=== PATIENT | male | born 1980 | race Caucasian/White ===

== ENCOUNTER 2016-09-16 12:52 | Inpatient (IN) | payer MEDICARE, MEDICAID ==
[~2016-09-16] VITALS: Ht 182.9 cm; Wt 158.8 kg
[~2016-09-16 12:52] MED LIST: BENZ1TAB10 PO; BUPR150T3 PO; CARV3 PO; FLUT1BLS PO; HALO10 PO; INSLAN SQ; LISI-661 PO; METF500T4 PO; PANT40TA25 PO; ROSU10 PO; SITA50 PO; TRAZ150 PO
[2016-09-16 13:21] LABS: GLUCOSE,POINT OF CARE 120 MG/DL (70-110)
[2016-09-16 14:19] LABS: BASOPHILS # (AUTO) 0.17 K/uL (0.00-0.20); BASOPHILS % (AUTO) 1.5 % (0.0-2.0); EOSINOPHILS # (AUTO) 0.19 K/uL (0.00-0.70); EOSINOPHILS % (AUTO) 1.67 % (1.0-6.0); HEMOGLOBIN 15.3 g/dL (13.5-17.5); LYMPHOCYTES # (AUTO) 2.5 K/uL (1.0-4.8); LYMPHOCYTES % (AUTO) 22.3 % (22.0-44.0); MEAN CORPUSCULAR HEMOGLOBIN 29.7 pg (26.0-34.0); MEAN CORPUSCULAR HGB CONC 33.9 G/dL (31.0-37.0); MEAN CORPUSCULAR VOLUME 88 fL (80-100); MONOCYTES # (AUTO) 0.7 K/uL (0.1-1.0); MONOCYTES % (AUTO) 5.7 % (2.0-9.0); NEUTROPHILS # (AUTO) 7.8 K/uL (1.8-7.7); NEUTROPHILS % (AUTO) 68.8 % (40.0-70.0); PLATELET COUNT (AUTO) 251 K/uL (150-450); RED BLOOD CELL COUNT(AUTO) 5.14 MIL/uL (4.50-5.90); RED CELL DISTRIBUTION WIDTH 14.4 % (11.5-14.5); WHITE BLOOD COUNT (AUTO) 11.3 K/uL (4.5-11.0)
[2016-09-16 14:39] LABS: ANION GAP 11 mmol/L (8-16); CARBON DIOXIDE 27 mmol/L (22-29); CHLORIDE 92 mmol/L (98-107); GLOMERULAR FILTR. RATE CALC > 60 mL/min (>60); POTASSIUM 4.1 mmol/L (3.5-5.1); SODIUM SERUM 130 mmol/L (136-145); UREA NITROGEN, BLOOD 9 mg/dL (7-18)
[2016-09-16 14:44] LABS: ALANINE AMINOTRANSFERASE 42 U/L (12-78); ALBUMIN 4.1 g/dL (3.4-5.0); ASPARTATE AMINOTRANSFERASE 22 U/L (15-37); BILIRUBIN,TOTAL 0.3 mg/dL (0.1-1.0); TOTAL PROTEIN, SERUM 7.7 g/dL (6.4-8.2)
[2016-09-16 15:30] LABS: APPEARANCE,URINE CLEAR (CLEAR); GLUCOSE, URINE (UA) NEGATIVE (NEGATIVE); KETONES,URINE NEGATIVE (NEGATIVE); LEUKOCYTE ESTERASE ,URINE NEGATIVE (NEGATIVE); OCCULT BLOOD,URINE NEGATIVE (NEGATIVE); PH,URINE 6.5 (5.0-8.0); PROTEIN,URINE NEGATIVE (NEGATIVE)
[2016-09-16 15:31] LABS: ADD UA MICROSCOPIC NO
[2016-09-16] MEDS: MetFORMIN HCL 500 MG TABLET PO SCH (17:08)
[2016-09-16 17:11] LABS: GLUCOSE COMMENT 1 Doctor Notified; GLUCOSE,POINT OF CARE 159 MG/DL (70-110)
[2016-09-16] MEDS ORDERED: DEXTROSE 50%-WATER 25 GM/50 ML SYG IVP PRN (18:15)
[2016-09-16 18:21] VITALS: BP 130/88
[2016-09-16] MEDS: ClonazePAM 0.5 MG TABLET PO SCH (18:43)
[2016-09-16] MEDS: CARVEDILOL 3.125 MG TABLET PO SCH (18:43)
[2016-09-16] MEDS: BENZTROPINE MESYLATE 1 MG TABLET PO SCH (18:43)
[2016-09-16] MEDS: INSULIN DETEMIR 100 UNITS/ML SQ SCH (21:04)
[2016-09-16] MEDS: INSULIN ASPART 100 UNITS/ML SQ PRN (21:05)
[2016-09-16] MEDS: QUEtiapine FUMARATE 200 MG TABLET PO SCH (21:09)
[2016-09-16] MEDS: TraZODone HCL 150 MG TABLET PO SCH (21:10)
[2016-09-16] MEDS: ROSUVASTATIN CALCIUM 10 MG TABLET PO SCH (21:10)
[2016-09-16] MEDS: HALOPERIDOL 10 MG TABLET PO SCH (21:10)
[2016-09-16 21:21] LABS: GLUCOSE COMMENT 1 Received Meds; GLUCOSE,POINT OF CARE 198 MG/DL (70-110)
[2016-09-17 05:31] LABS: GLUCOSE,POINT OF CARE 160 MG/DL (70-110)
[2016-09-17 06:16] VITALS: BP 132/75
[2016-09-17] MEDS: MetFORMIN HCL 500 MG TABLET PO SCH ×2 (06:30→17:58)
[2016-09-17] MEDS: INSULIN ASPART 100 UNITS/ML SQ PRN ×4 (06:40→20:19)
[2016-09-17] MEDS: BENZTROPINE MESYLATE 1 MG TABLET PO SCH ×2 (08:23→16:21)
[2016-09-17] MEDS: ClonazePAM 0.5 MG TABLET PO SCH ×2 (08:23→16:21)
[2016-09-17] MEDS: BuPROPion HCL 150 MG SR TABLET PO SCH (08:24)
[2016-09-17] MEDS: LISINOPRIL 10 MG TABLET PO SCH (08:24)
[2016-09-17] MEDS: SitaGLIPtin PHOSPHATE 50 MG TABLET PO SCH (08:24)
[2016-09-17] MEDS: NICOTINE 21 MG/24 HOUR PATCH TD SCH (08:25)
[2016-09-17] MEDS: CARVEDILOL 3.125 MG TABLET PO SCH ×2 (08:25→16:22)
[2016-09-17] MEDS: FLUTICASONE/VILANTEROL 200-25 MCG/INH INHALER [14] IH SCH (08:27)
[2016-09-17] MEDS: PANTOPRAZOLE SODIUM 40 MG DR TABLET PO SCH (08:27)
[2016-09-17 09:30] VITALS: BP 112/83
[2016-09-17] MEDS ORDERED: ACETAMINOPHEN 325 MG TABLET PO PRN (11:15)
[2016-09-17 11:26] LABS: GLUCOSE COMMENT 1 Received Meds; GLUCOSE,POINT OF CARE 147 MG/DL (70-110)
[2016-09-17] MEDS: IBUPROFEN 600 MG TABLET PO PRN ×2 (11:26→20:41)
[2016-09-17 12:32] VITALS: BP 153/81
[2016-09-17] MEDS: LORazepam 2 MG TABLET PO PRN (12:56)
[2016-09-17 16:31] LABS: GLUCOSE,POINT OF CARE 204 MG/DL (70-110)
[2016-09-17 18:07] VITALS: BP 131/90
[2016-09-17] MEDS: HALOPERIDOL 10 MG TABLET PO SCH (20:10)
[2016-09-17] MEDS: QUEtiapine FUMARATE 200 MG TABLET PO SCH (20:10)
[2016-09-17] MEDS: ROSUVASTATIN CALCIUM 10 MG TABLET PO SCH (20:10)
[2016-09-17] MEDS: TraZODone HCL 150 MG TABLET PO SCH (20:10)
[2016-09-17] MEDS: INSULIN DETEMIR 100 UNITS/ML SQ SCH (20:20)
[2016-09-17 20:21] LABS: GLUCOSE,POINT OF CARE 180 MG/DL (70-110)
[2016-09-17 20:38] VITALS: BP 146/89
[2016-09-18 05:36] LABS: GLUCOSE,POINT OF CARE 163 MG/DL (70-110)
[2016-09-18] MEDS: INSULIN ASPART 100 UNITS/ML SQ PRN ×3 (06:28→20:12)
[2016-09-18] MEDS: MetFORMIN HCL 500 MG TABLET PO SCH ×2 (06:28→16:25)
[2016-09-18] MEDS: BENZTROPINE MESYLATE 1 MG TABLET PO SCH ×2 (09:17→16:25)
[2016-09-18] MEDS: PANTOPRAZOLE SODIUM 40 MG DR TABLET PO SCH (09:17)
[2016-09-18] MEDS: FLUTICASONE/VILANTEROL 200-25 MCG/INH INHALER [14] IH SCH (09:18)
[2016-09-18] MEDS: CARVEDILOL 3.125 MG TABLET PO SCH ×2 (09:18→16:25)
[2016-09-18] MEDS: SitaGLIPtin PHOSPHATE 50 MG TABLET PO SCH (09:18)
[2016-09-18] MEDS: ClonazePAM 0.5 MG TABLET PO SCH ×2 (09:18→16:25)
[2016-09-18] MEDS: BuPROPion HCL 150 MG SR TABLET PO SCH (09:19)
[2016-09-18] MEDS: LISINOPRIL 10 MG TABLET PO SCH (09:19)
[2016-09-18] MEDS: NICOTINE 21 MG/24 HOUR PATCH TD SCH (09:19)
[2016-09-18] MEDS: IBUPROFEN 600 MG TABLET PO PRN (09:46)
[2016-09-18 09:55] VITALS: BP 174/75
[2016-09-18 11:31] LABS: GLUCOSE,POINT OF CARE 162 MG/DL (70-110)
[2016-09-18] MEDS: LORazepam 2 MG TABLET PO PRN (12:57)
[2016-09-18] MEDS: HALOPERIDOL 5 MG TABLET PO PRN (12:57)
[2016-09-18] MEDS: TraMADol HCL 50 MG TABLET PO PRN (16:26)
[2016-09-18 16:36] LABS: GLUCOSE COMMENT 1 Received Meds; GLUCOSE,POINT OF CARE 127 MG/DL (70-110)
[2016-09-18] MEDS: ROSUVASTATIN CALCIUM 10 MG TABLET PO SCH (19:57)
[2016-09-18] MEDS: HALOPERIDOL 10 MG TABLET PO SCH (19:58)
[2016-09-18] MEDS: QUEtiapine FUMARATE 200 MG TABLET PO SCH (19:58)
[2016-09-18] MEDS: TraZODone HCL 150 MG TABLET PO SCH (19:58)
[2016-09-18 20:10] LABS: GLUCOSE COMMENT 1 Received Meds; GLUCOSE,POINT OF CARE 189 MG/DL (70-110)
[2016-09-18] MEDS: INSULIN DETEMIR 100 UNITS/ML SQ SCH (20:11)
[2016-09-19 06:06] LABS: GLUCOSE,POINT OF CARE 167 MG/DL (70-110)
[2016-09-19] MEDS: MetFORMIN HCL 500 MG TABLET PO SCH ×2 (06:53→17:18)
[2016-09-19] MEDS: INSULIN ASPART 100 UNITS/ML SQ PRN ×4 (07:05→20:37)
[2016-09-19] MEDS: PANTOPRAZOLE SODIUM 40 MG DR TABLET PO SCH (08:46)
[2016-09-19] MEDS: ClonazePAM 0.5 MG TABLET PO SCH ×2 (08:46→16:20)
[2016-09-19] MEDS: BENZTROPINE MESYLATE 1 MG TABLET PO SCH ×2 (08:46→16:20)
[2016-09-19] MEDS: FLUTICASONE/VILANTEROL 200-25 MCG/INH INHALER [14] IH SCH (08:46)
[2016-09-19] MEDS: BuPROPion HCL 150 MG SR TABLET PO SCH (08:47)
[2016-09-19] MEDS: SitaGLIPtin PHOSPHATE 50 MG TABLET PO SCH (08:47)
[2016-09-19] MEDS: CARVEDILOL 3.125 MG TABLET PO SCH ×2 (08:47→16:20)
[2016-09-19] MEDS: LISINOPRIL 10 MG TABLET PO SCH (08:48)
[2016-09-19] MEDS: NICOTINE 21 MG/24 HOUR PATCH TD SCH (08:48)
[2016-09-19 09:43] VITALS: BP 142/101
[2016-09-19] MEDS: TraMADol HCL 50 MG TABLET PO PRN ×2 (09:50→21:50)
[2016-09-19 12:01] LABS: GLUCOSE COMMENT 1 Received Meds; GLUCOSE,POINT OF CARE 175 MG/DL (70-110)
[2016-09-19 12:59] VITALS: BP 139/85
[2016-09-19] MEDS: ALBUTEROL SULFATE/IPRATROPIUM 100-20 MCG/SPRAY 4 GM INHALER IH PRN (15:07)
[2016-09-19 16:26] LABS: GLUCOSE COMMENT 1 Received Meds; GLUCOSE,POINT OF CARE 148 MG/DL (70-110)
[2016-09-19] MEDS: MAGNESIUM CITRATE 300 ML ORAL SOLUTION PO PRN (18:49)
[2016-09-19] MEDS: LORazepam 2 MG TABLET PO PRN (19:05)
[2016-09-19] MEDS: HALOPERIDOL 5 MG TABLET PO PRN (19:06)
[2016-09-19 20:30] LABS: GLUCOSE COMMENT 1 Received Meds; GLUCOSE,POINT OF CARE 167 MG/DL (70-110)
[2016-09-19] MEDS: INSULIN DETEMIR 100 UNITS/ML SQ SCH (20:36)
[2016-09-19] MEDS: TraZODone HCL 150 MG TABLET PO SCH (21:47)
[2016-09-19] MEDS: ROSUVASTATIN CALCIUM 10 MG TABLET PO SCH (21:47)
[2016-09-19] MEDS: HALOPERIDOL 10 MG TABLET PO SCH (21:47)
[2016-09-19] MEDS: QUEtiapine FUMARATE 200 MG TABLET PO SCH (21:47)
[2016-09-19 21:50] VITALS: BP 125/89
[2016-09-20] MEDS: INSULIN ASPART 100 UNITS/ML SQ PRN ×6 (06:24→22:25)
[2016-09-20 06:26] LABS: GLUCOSE,POINT OF CARE 188 MG/DL (70-110)
[2016-09-20] MEDS: MetFORMIN HCL 500 MG TABLET PO SCH ×2 (06:47→17:58)
[2016-09-20 07:33] LABS: CHOL/HDL RATIO 4.3 (4.2-7.3); CREATINE KINASE MB 1.5 ng/mL (0-5); CREATINE KINASE, TOTAL 171 U/L (39-308); THYROID STIMULATING HORMONE 2.05 uIU/mL (0.36-3.74)
[2016-09-20 08:00] VITALS: BP 136/77
[2016-09-20] MEDS: FLUTICASONE/VILANTEROL 200-25 MCG/INH INHALER [14] IH SCH (08:05)
[2016-09-20] MEDS: PANTOPRAZOLE SODIUM 40 MG DR TABLET PO SCH (08:05)
[2016-09-20] MEDS: TraMADol HCL 50 MG TABLET PO PRN ×2 (08:05→18:38)
[2016-09-20] MEDS: CARVEDILOL 3.125 MG TABLET PO SCH ×2 (08:06→16:02)
[2016-09-20] MEDS: BENZTROPINE MESYLATE 1 MG TABLET PO SCH ×2 (08:06→16:02)
[2016-09-20] MEDS: LISINOPRIL 10 MG TABLET PO SCH (08:06)
[2016-09-20] MEDS: BuPROPion HCL 150 MG SR TABLET PO SCH (08:06)
[2016-09-20] MEDS: SitaGLIPtin PHOSPHATE 50 MG TABLET PO SCH (08:06)
[2016-09-20] MEDS: ClonazePAM 0.5 MG TABLET PO SCH ×2 (08:06→16:02)
[2016-09-20] MEDS: NICOTINE 21 MG/24 HOUR PATCH TD SCH (08:10)
[2016-09-20 12:01] LABS: GLUCOSE,POINT OF CARE 158 MG/DL (70-110)
[2016-09-20 16:21] LABS: GLUCOSE,POINT OF CARE 192 MG/DL (70-110)
[2016-09-20 16:44] VITALS: BP 129/93
[2016-09-20 18:39] VITALS: BP 126/88
[2016-09-20 19:30] VITALS: BP 124/85
[2016-09-20] MEDS: QUEtiapine FUMARATE 200 MG TABLET PO SCH (20:35)
[2016-09-20] MEDS: HALOPERIDOL 10 MG TABLET PO SCH (20:35)
[2016-09-20] MEDS: ROSUVASTATIN CALCIUM 10 MG TABLET PO SCH (20:35)
[2016-09-20] MEDS: TraZODone HCL 150 MG TABLET PO SCH (20:35)
[2016-09-20 20:41] LABS: GLUCOSE,POINT OF CARE 224 MG/DL (70-110)
[2016-09-20] MEDS: INSULIN DETEMIR 100 UNITS/ML SQ SCH (22:20)
[2016-09-20] MEDS: ZOLPIDEM TARTRATE 10 MG TABLET PO PRN (23:33)
[2016-09-21 06:06] LABS: GLUCOSE,POINT OF CARE 198 MG/DL (70-110)
[2016-09-21] MEDS: INSULIN ASPART 100 UNITS/ML SQ PRN ×3 (07:09→21:06)
[2016-09-21] MEDS: BuPROPion HCL 150 MG SR TABLET PO SCH (08:09)
[2016-09-21] MEDS: BENZTROPINE MESYLATE 1 MG TABLET PO SCH ×2 (08:09→16:45)
[2016-09-21] MEDS: PANTOPRAZOLE SODIUM 40 MG DR TABLET PO SCH (08:09)
[2016-09-21] MEDS: LISINOPRIL 10 MG TABLET PO SCH (08:09)
[2016-09-21] MEDS: FLUTICASONE/VILANTEROL 200-25 MCG/INH INHALER [14] IH SCH (08:09)
[2016-09-21] MEDS: CARVEDILOL 3.125 MG TABLET PO SCH ×2 (08:09→16:45)
[2016-09-21] MEDS: MetFORMIN HCL 500 MG TABLET PO SCH ×2 (08:09→17:51)
[2016-09-21] MEDS: SitaGLIPtin PHOSPHATE 50 MG TABLET PO SCH (08:10)
[2016-09-21] MEDS: ClonazePAM 0.5 MG TABLET PO SCH ×2 (08:10→16:45)
[2016-09-21] MEDS: NICOTINE 21 MG/24 HOUR PATCH TD SCH (08:14)
[2016-09-21] MEDS: TraMADol HCL 50 MG TABLET PO PRN (10:06)
[2016-09-21 10:08] VITALS: BP 141/63
[2016-09-21] MEDS: HALOPERIDOL 5 MG TABLET PO PRN (11:03)
[2016-09-21] MEDS: LORazepam 2 MG TABLET PO PRN (11:03)
[2016-09-21 11:56] LABS: GLUCOSE,POINT OF CARE 169 MG/DL (70-110)
[2016-09-21 16:59] VITALS: BP 146/94
[2016-09-21 17:11] LABS: GLUCOSE,POINT OF CARE 109 MG/DL (70-110)
[2016-09-21 20:26] LABS: GLUCOSE,POINT OF CARE 257 MG/DL (70-110)
[2016-09-21] MEDS: QUEtiapine FUMARATE 200 MG TABLET PO SCH (20:41)
[2016-09-21] MEDS: MAGNESIUM CITRATE 300 ML ORAL SOLUTION PO PRN (20:41)
[2016-09-21] MEDS: ROSUVASTATIN CALCIUM 10 MG TABLET PO SCH (20:41)
[2016-09-21] MEDS: TraZODone HCL 150 MG TABLET PO SCH (20:41)
[2016-09-21] MEDS: HALOPERIDOL 10 MG TABLET PO SCH (20:41)
[2016-09-21] MEDS: INSULIN DETEMIR 100 UNITS/ML SQ SCH (21:07)
[2016-09-21] MEDS: ZOLPIDEM TARTRATE 10 MG TABLET PO PRN (23:39)
[2016-09-22 00:05] VITALS: BP 137/80
[2016-09-22 06:06] LABS: GLUCOSE,POINT OF CARE 199 MG/DL (70-110)
[2016-09-22] MEDS: MetFORMIN HCL 500 MG TABLET PO SCH (06:59)
[2016-09-22] MEDS: INSULIN ASPART 100 UNITS/ML SQ PRN ×2 (07:09→11:31)
[2016-09-22] MEDS: BENZTROPINE MESYLATE 1 MG TABLET PO SCH (08:47)
[2016-09-22] MEDS: ClonazePAM 0.5 MG TABLET PO SCH (08:47)
[2016-09-22] MEDS: SitaGLIPtin PHOSPHATE 50 MG TABLET PO SCH (08:47)
[2016-09-22] MEDS: CARVEDILOL 3.125 MG TABLET PO SCH (08:47)
[2016-09-22] MEDS: PANTOPRAZOLE SODIUM 40 MG DR TABLET PO SCH (08:47)
[2016-09-22] MEDS: BuPROPion HCL 150 MG SR TABLET PO SCH (08:48)
[2016-09-22] MEDS: LISINOPRIL 10 MG TABLET PO SCH (08:48)
[2016-09-22 08:54] VITALS: BP 141/99
[2016-09-22] MEDS: TraMADol HCL 50 MG TABLET PO PRN (08:54)
[2016-09-22] MEDS: ALBUTEROL SULFATE/IPRATROPIUM 100-20 MCG/SPRAY 4 GM INHALER IH PRN (08:55)
[2016-09-22] MEDS: FLUTICASONE/VILANTEROL 200-25 MCG/INH INHALER [14] IH SCH (08:55)
[2016-09-22] MEDS: NICOTINE 21 MG/24 HOUR PATCH TD SCH (08:55)
[2016-09-22 11:36] LABS: GLUCOSE,POINT OF CARE 171 MG/DL (70-110)
[2016-09-22] MEDS ORDERED: CLON.5 PO (12:35)
[2016-09-22] MEDS ORDERED: QUET200T PO (12:35)
== END 2016-09-22 14:00 | disposition home or self-care (01) | DRG 885 ==
LOC: EMS 12:56 → 3EX 17:03
PROVIDERS: ADMIT Psychiatry & Neurology Psychiatry; ATTEND Psychiatry & Neurology Psychiatry
PROC: 5A09457 Assistance with Respiratory Ventilation, 24-96 Consecutive Hours, Continuous Positive Airway Pressure (ICD-10-PCS; principal; 2016-09-16)
DX: F25.9 Schizoaffective disorder, unspecified (principal); R45.851 Suicidal ideations; E87.1 Hypo-osmolality and hyponatremia; Z68.42 Body mass index [BMI] 45.0-49.9, adult; E11.9 Type 2 diabetes mellitus without complications; E66.01 Morbid (severe) obesity due to excess calories; E78.00 Pure hypercholesterolemia, unspecified; E78.5 Hyperlipidemia, unspecified; G47.33 Obstructive sleep apnea (adult) (pediatric); J44.9 Chronic obstructive pulmonary disease, unspecified; K21.9 Gastro-esophageal reflux disease without esophagitis; K59.00 Constipation, unspecified; F17.210 Nicotine dependence, cigarettes, uncomplicated; F32.9 Major depressive disorder, single episode, unspecified; I11.9 Hypertensive heart disease without heart failure; M19.011 Primary osteoarthritis, right shoulder; Z79.899 Other long term (current) drug therapy; Z83.3 Family history of diabetes mellitus; Z79.4 Long term (current) use of insulin; Z98.890 Other specified postprocedural states
CPT/HCPCS: 82306; 82607; 82746; 82962; 83036; 83735; 84439; 84443; 85379; 85651; 99285; G0480

== ENCOUNTER 2016-11-10 10:45 | Inpatient (IN) | payer MEDICARE, OTHER, MEDICAID ==
[~2016-11-10] VITALS: Ht 182.9 cm; Wt 157.0 kg
[~2016-11-10 10:45] MED LIST changes: +CLON.5 PO; +QUET200T PO
[2016-11-10] MEDS ORDERED: HALOPERIDOL 5 MG TABLET PO PRN ×2 (12:15→15:00)
[2016-11-10 12:55] VITALS: BP 142/85
[2016-11-10 14:19] VITALS: BP 142/83
[2016-11-10] MEDS ORDERED: ZOLPIDEM TARTRATE 10 MG TABLET PO PRN (15:00)
[2016-11-10] MEDS ORDERED: GLUCAGON,HUMAN RECOMBINANT 1 MG VIAL IM PRN (15:15)
[2016-11-10] MEDS: ClonazePAM 0.5 MG TABLET PO SCH (16:00)
[2016-11-10] MEDS: BENZTROPINE MESYLATE 1 MG TABLET PO SCH (16:00)
[2016-11-10] MEDS: CARVEDILOL 3.125 MG TABLET PO SCH (16:01)
[2016-11-10 16:20] VITALS: BP 123/81
[2016-11-10 16:22] LABS: APPEARANCE,URINE CLEAR (CLEAR); GLUCOSE, URINE (UA) NEGATIVE (NEGATIVE); KETONES,URINE NEGATIVE (NEGATIVE); LEUKOCYTE ESTERASE ,URINE NEGATIVE (NEGATIVE); OCCULT BLOOD,URINE NEGATIVE (NEGATIVE); PH,URINE 6.5 (5.0-8.0); PROTEIN,URINE NEGATIVE (NEGATIVE)
[2016-11-10 16:39] LABS: ADD UA MICROSCOPIC NO
[2016-11-10] MEDS: MetFORMIN HCL 500 MG TABLET PO SCH (16:52)
[2016-11-10] MEDS: INSULIN ASPART 100 UNITS/ML SQ PRN ×2 (17:22→20:18)
[2016-11-10] MEDS: QUEtiapine FUMARATE 200 MG TABLET PO SCH (20:12)
[2016-11-10] MEDS: ROSUVASTATIN CALCIUM 10 MG TABLET PO SCH (20:13)
[2016-11-10] MEDS: TraZODone HCL 150 MG TABLET PO SCH (20:13)
[2016-11-10] MEDS: HALOPERIDOL 10 MG TABLET PO SCH (20:13)
[2016-11-10] MEDS: INSULIN DETEMIR 100 UNITS/ML SQ SCH (20:17)
[2016-11-11 05:38] LABS: GLUCOSE,POINT OF CARE 180 MG/DL (70-110)
[2016-11-11] MEDS: MetFORMIN HCL 500 MG TABLET PO SCH ×2 (06:30→17:45)
[2016-11-11 06:41] LABS: BASOPHILS # (AUTO) 0.04 K/uL (0.00-0.20); BASOPHILS % (AUTO) 0.5 % (0.0-2.0); EOSINOPHILS # (AUTO) 0.23 K/uL (0.00-0.70); EOSINOPHILS % (AUTO) 2.64 % (1.0-6.0); HEMOGLOBIN 15.1 g/dL (13.5-17.5); LYMPHOCYTES # (AUTO) 2.4 K/uL (1.0-4.8); LYMPHOCYTES % (AUTO) 27.6 % (22.0-44.0); MEAN CORPUSCULAR HEMOGLOBIN 29.6 pg (26.0-34.0); MEAN CORPUSCULAR HGB CONC 33.7 G/dL (31.0-37.0); MEAN CORPUSCULAR VOLUME 88 fL (80-100); MONOCYTES # (AUTO) 0.6 K/uL (0.1-1.0); MONOCYTES % (AUTO) 7.4 % (2.0-9.0); NEUTROPHILS # (AUTO) 5.4 K/uL (1.8-7.7); NEUTROPHILS % (AUTO) 61.9 % (40.0-70.0); PLATELET COUNT (AUTO) 225 K/uL (150-450); RED BLOOD CELL COUNT(AUTO) 5.11 MIL/uL (4.50-5.90); RED CELL DISTRIBUTION WIDTH 14.1 % (11.5-14.5); WHITE BLOOD COUNT (AUTO) 8.7 K/uL (4.5-11.0)
[2016-11-11 06:57] LABS: ALANINE AMINOTRANSFERASE 38 U/L (12-78); ALBUMIN 3.6 g/dL (3.4-5.0); ANION GAP 8 mmol/L (8-16); ASPARTATE AMINOTRANSFERASE 19 U/L (15-37); BILIRUBIN,TOTAL 0.3 mg/dL (0.1-1.0); CALCIUM, TOTAL 8.9 mg/dL (8.8-10.5); CARBON DIOXIDE 30 mmol/L (22-29); CHLORIDE 98 mmol/L (98-107); CREATININE 0.79 mg/dL (0.60-1.30); GLOMERULAR FILTR. RATE CALC > 60 mL/min (>60); POTASSIUM 4.1 mmol/L (3.5-5.1); SODIUM SERUM 136 mmol/L (136-145); TOTAL PROTEIN, SERUM 7.2 g/dL (6.4-8.2); UREA NITROGEN, BLOOD 7 mg/dL (7-18)
[2016-11-11] MEDS: INSULIN ASPART 100 UNITS/ML SQ PRN ×4 (07:13→21:06)
[2016-11-11] MEDS: FLUTICASONE/VILANTEROL 200-25 MCG/INH INHALER [14] IH SCH (08:20)
[2016-11-11] MEDS: ClonazePAM 0.5 MG TABLET PO SCH ×2 (08:21→16:46)
[2016-11-11] MEDS: SitaGLIPtin PHOSPHATE 50 MG TABLET PO SCH (08:21)
[2016-11-11] MEDS: BuPROPion HCL 150 MG SR TABLET PO SCH (08:21)
[2016-11-11] MEDS: BENZTROPINE MESYLATE 1 MG TABLET PO SCH ×2 (08:21→16:47)
[2016-11-11] MEDS: PANTOPRAZOLE SODIUM 40 MG DR TABLET PO SCH (08:21)
[2016-11-11] MEDS: CARVEDILOL 3.125 MG TABLET PO SCH ×2 (08:22→16:46)
[2016-11-11] MEDS: LISINOPRIL 10 MG TABLET PO SCH (08:22)
[2016-11-11] MEDS: NICOTINE 21 MG/24 HOUR PATCH TD SCH (08:26)
[2016-11-11 08:30] VITALS: BP 132/64
[2016-11-11 11:36] LABS: GLUCOSE,POINT OF CARE 189 MG/DL (70-110)
[2016-11-11] MEDS ORDERED: LORazepam 2 MG/ML VIAL IM ONE (15:30)
[2016-11-11 16:00] VITALS: BP 154/101
[2016-11-11 16:47] LABS: GLUCOSE,POINT OF CARE 209 MG/DL (70-110)
[2016-11-11] MEDS: HALOPERIDOL 10 MG TABLET PO SCH (21:04)
[2016-11-11] MEDS: TraZODone HCL 150 MG TABLET PO SCH (21:04)
[2016-11-11] MEDS: ROSUVASTATIN CALCIUM 10 MG TABLET PO SCH (21:04)
[2016-11-11] MEDS: QUEtiapine FUMARATE 200 MG TABLET PO SCH (21:05)
[2016-11-11] MEDS: INSULIN DETEMIR 100 UNITS/ML SQ SCH (21:06)
[2016-11-12 05:42] LABS: GLUCOSE,POINT OF CARE 209 MG/DL (70-110)
[2016-11-12] MEDS: MetFORMIN HCL 500 MG TABLET PO SCH ×2 (06:50→16:30)
[2016-11-12] MEDS: INSULIN ASPART 100 UNITS/ML SQ PRN ×3 (07:06→23:02)
[2016-11-12] MEDS ORDERED: MAGNESIUM CITRATE 300 ML ORAL SOLUTION PO PRN (07:45)
[2016-11-12 08:00] VITALS: BP 106/84
[2016-11-12] MEDS: FLUTICASONE/VILANTEROL 200-25 MCG/INH INHALER [14] IH SCH (08:57)
[2016-11-12] MEDS: BENZTROPINE MESYLATE 1 MG TABLET PO SCH ×2 (08:58→16:30)
[2016-11-12] MEDS: CARVEDILOL 3.125 MG TABLET PO SCH ×2 (08:58→16:30)
[2016-11-12] MEDS: BuPROPion HCL 150 MG SR TABLET PO SCH (08:58)
[2016-11-12] MEDS: SitaGLIPtin PHOSPHATE 50 MG TABLET PO SCH (08:58)
[2016-11-12] MEDS: ClonazePAM 0.5 MG TABLET PO SCH ×2 (08:58→16:30)
[2016-11-12] MEDS: PANTOPRAZOLE SODIUM 40 MG DR TABLET PO SCH (08:58)
[2016-11-12] MEDS: LISINOPRIL 10 MG TABLET PO SCH (08:59)
[2016-11-12] MEDS: NICOTINE 21 MG/24 HOUR PATCH TD SCH (08:59)
[2016-11-12] MEDS ORDERED: LORazepam 2 MG/ML VIAL IM ONE (14:30)
[2016-11-12] MEDS ORDERED: DiphenhydrAMINE HCL 50 MG/ML VIAL IM ONE (14:30)
[2016-11-12] MEDS ORDERED: HALOPERIDOL LACTATE 5 MG/ML VIAL IM ONE (14:30)
[2016-11-12 16:40] VITALS: BP 145/100
[2016-11-12] MEDS: TraZODone HCL 150 MG TABLET PO SCH (20:10)
[2016-11-12] MEDS: QUEtiapine FUMARATE 200 MG TABLET PO SCH (20:10)
[2016-11-12] MEDS: ROSUVASTATIN CALCIUM 10 MG TABLET PO SCH (20:10)
[2016-11-12] MEDS: HALOPERIDOL 10 MG TABLET PO SCH (20:10)
[2016-11-12] MEDS ORDERED: ALBUTEROL SULFATE/IPRATROPIUM 100-20 MCG/SPRAY 4 GM INHALER IH PRN (20:15)
[2016-11-12] MEDS: INSULIN DETEMIR 100 UNITS/ML SQ SCH (23:03)
[2016-11-13 05:12] LABS: GLUCOSE,POINT OF CARE 190 MG/DL (70-110)
[2016-11-13] MEDS: INSULIN ASPART 100 UNITS/ML SQ PRN ×4 (06:44→20:52)
[2016-11-13] MEDS: MetFORMIN HCL 500 MG TABLET PO SCH ×2 (07:09→16:30)
[2016-11-13 08:00] VITALS: BP 151/95
[2016-11-13] MEDS: FLUTICASONE/VILANTEROL 200-25 MCG/INH INHALER [14] IH SCH (08:31)
[2016-11-13] MEDS: CARVEDILOL 3.125 MG TABLET PO SCH ×2 (08:32→16:30)
[2016-11-13] MEDS: ClonazePAM 0.5 MG TABLET PO SCH ×2 (08:32→16:30)
[2016-11-13] MEDS: PANTOPRAZOLE SODIUM 40 MG DR TABLET PO SCH (08:32)
[2016-11-13] MEDS: BENZTROPINE MESYLATE 1 MG TABLET PO SCH ×2 (08:32→16:30)
[2016-11-13] MEDS: SitaGLIPtin PHOSPHATE 50 MG TABLET PO SCH (08:32)
[2016-11-13] MEDS: BuPROPion HCL 150 MG SR TABLET PO SCH (08:32)
[2016-11-13] MEDS: LISINOPRIL 10 MG TABLET PO SCH (08:33)
[2016-11-13] MEDS: NICOTINE 21 MG/24 HOUR PATCH TD SCH (08:33)
[2016-11-13] MEDS ORDERED: CloNIDine HCL 0.1 MG TABLET PO PRN (11:30)
[2016-11-13] MEDS ORDERED: FLUTICASONE/VILANTEROL 200-25 MCG/INH INHALER [14] IH SCH (11:45)
[2016-11-13] MEDS ORDERED: IPRATROPIUM BROMIDE 0.5 MG/2.5 ML NEB SOLUTION NEB PRN (11:45)
[2016-11-13] MEDS ORDERED: ALBUTEROL SULFATE 2.5 MG/0.5 ML NEB SOLUTION NEB PRN (11:45)
[2016-11-13] MEDS: PredniSONE 20 MG TABLET PO SCH (12:22)
[2016-11-13 17:00] VITALS: BP 146/90
[2016-11-13] MEDS: HALOPERIDOL 10 MG TABLET PO SCH (20:38)
[2016-11-13] MEDS: QUEtiapine FUMARATE 200 MG TABLET PO SCH (20:38)
[2016-11-13] MEDS: TraZODone HCL 150 MG TABLET PO SCH (20:38)
[2016-11-13] MEDS: ROSUVASTATIN CALCIUM 10 MG TABLET PO SCH (20:38)
[2016-11-13] MEDS: INSULIN DETEMIR 100 UNITS/ML SQ SCH (20:52)
[2016-11-14 05:22] LABS: GLUCOSE,POINT OF CARE 217 MG/DL (70-110)
[2016-11-14] MEDS: INSULIN ASPART 100 UNITS/ML SQ PRN ×2 (06:59→11:44)
[2016-11-14] MEDS: MetFORMIN HCL 500 MG TABLET PO SCH (07:05)
[2016-11-14 08:01] VITALS: BP 152/88
[2016-11-14] MEDS: BENZTROPINE MESYLATE 1 MG TABLET PO SCH (08:47)
[2016-11-14] MEDS: ClonazePAM 0.5 MG TABLET PO SCH (08:47)
[2016-11-14] MEDS: CARVEDILOL 3.125 MG TABLET PO SCH (08:48)
[2016-11-14] MEDS: LISINOPRIL 10 MG TABLET PO SCH (08:48)
[2016-11-14] MEDS: FLUTICASONE/VILANTEROL 200-25 MCG/INH INHALER [14] IH SCH (08:48)
[2016-11-14] MEDS: PANTOPRAZOLE SODIUM 40 MG DR TABLET PO SCH (08:49)
[2016-11-14] MEDS: BuPROPion HCL 150 MG SR TABLET PO SCH (08:49)
[2016-11-14] MEDS: SitaGLIPtin PHOSPHATE 50 MG TABLET PO SCH (08:49)
[2016-11-14] MEDS: NICOTINE 21 MG/24 HOUR PATCH TD SCH (08:50)
[2016-11-14] MEDS: PredniSONE 20 MG TABLET PO SCH (08:51)
[2016-11-14] MEDS ORDERED: PRED20 PO ×2 (13:09→13:10)
[2016-11-16] MEDS ORDERED: PredniSONE 20 MG TABLET PO SCH (09:00)
[2016-11-19] MEDS ORDERED: PredniSONE 20 MG TABLET PO SCH (09:00)
== END 2016-11-14 14:45 | disposition home or self-care (01) | DRG 885 ==
LOC: 3EX 12:01 → EDSTATUS 12:41
PROVIDERS: ADMIT Psychiatry & Neurology Psychiatry; ATTEND Psychiatry & Neurology Psychiatry
PROC: 5A09457 Assistance with Respiratory Ventilation, 24-96 Consecutive Hours, Continuous Positive Airway Pressure (ICD-10-PCS; principal; 2016-11-10)
DX: F25.9 Schizoaffective disorder, unspecified (principal); J44.1 Chronic obstructive pulmonary disease with (acute) exacerbation; Z68.42 Body mass index [BMI] 45.0-49.9, adult; G47.33 Obstructive sleep apnea (adult) (pediatric); E66.01 Morbid (severe) obesity due to excess calories; I10 Essential (primary) hypertension; F17.210 Nicotine dependence, cigarettes, uncomplicated; E78.5 Hyperlipidemia, unspecified; F32.9 Major depressive disorder, single episode, unspecified; K59.00 Constipation, unspecified; F22 Delusional disorders; E11.9 Type 2 diabetes mellitus without complications; Z79.4 Long term (current) use of insulin; Z83.3 Family history of diabetes mellitus
CPT/HCPCS: 80307; 82962; 94060; 94640; 94660; J1200; J1630; J2060

== ENCOUNTER 2016-12-08 16:14 | Emergency (ER) | payer MEDICARE, OTHER ==
[~2016-12-08] VITALS: Ht 182.9 cm; Wt 159.1 kg
[~2016-12-08 16:14] MED LIST changes: +PRED20 PO
[2016-12-08 16:32] LABS: GLUCOSE,POINT OF CARE 132 MG/DL (70-110)
[2016-12-08 17:25] LABS: BASOPHILS % (AUTO) 0.4 % (0.0-2.0); EOSINOPHILS % (AUTO) 1.8 % (1.0-6.0); HEMATOCRIT 46.3 % (41-53); HEMOGLOBIN 15.2 g/dL (13.5-17.5); LYMPHOCYTES # (AUTO) 2.4 K/uL (1.0-4.8); LYMPHOCYTES % (AUTO) 23.3 % (22.0-44.0); MEAN CORPUSCULAR HEMOGLOBIN 29.2 pg (26.0-34.0); MEAN CORPUSCULAR HGB CONC 32.8 G/dL (31.0-37.0); MEAN CORPUSCULAR VOLUME 89 fL (80-100); MONOCYTES # (AUTO) 0.6 K/uL (0.1-1.0); MONOCYTES % (AUTO) 6.3 % (2.0-9.0); NEUTROPHILS % (AUTO) 68.2 % (40.0-70.0); PLATELET COUNT (AUTO) 246 K/uL (150-450); RED CELL DISTRIBUTION WIDTH 13.4 % (11.5-14.5); WHITE BLOOD COUNT (AUTO) 10.2 K/uL (4.5-11.0)
[2016-12-08 17:29] LABS: ANION GAP 11 mmol/L (8-16); CALCIUM, TOTAL 8.6 mg/dL (8.8-10.5); CARBON DIOXIDE 26 mmol/L (22-29); CHLORIDE 89 mmol/L (98-107); CREATININE 0.75 mg/dL (0.60-1.30); GLOMERULAR FILTR. RATE CALC > 60 mL/min (>60); POTASSIUM 3.7 mmol/L (3.5-5.1); SODIUM SERUM 126 mmol/L (136-145); UREA NITROGEN, BLOOD 6 mg/dL (7-18)
[2016-12-08 17:36] LABS: ALANINE AMINOTRANSFERASE 48 U/L (12-78); ASPARTATE AMINOTRANSFERASE 36 U/L (15-37); BILIRUBIN,TOTAL 0.4 mg/dL (0.1-1.0); TOTAL PROTEIN, SERUM 7.5 g/dL (6.4-8.2)
[2016-12-08] MEDS ORDERED: SODIUM CHLORIDE 0.9% 1,000 ML IV ONE ×2 (19:25→19:30)
[2016-12-08 20:20] VITALS: BP 128/80
== END 2016-12-08 20:31 | disposition home or self-care (01) ==
LOC: EMS 16:16
DX: F41.9 Anxiety disorder, unspecified (principal); E87.1 Hypo-osmolality and hyponatremia; J44.9 Chronic obstructive pulmonary disease, unspecified; F32.9 Major depressive disorder, single episode, unspecified; K21.9 Gastro-esophageal reflux disease without esophagitis; E78.00 Pure hypercholesterolemia, unspecified; F20.9 Schizophrenia, unspecified; F17.210 Nicotine dependence, cigarettes, uncomplicated; E66.01 Morbid (severe) obesity due to excess calories; Z68.42 Body mass index [BMI] 45.0-49.9, adult
CPT/HCPCS: 36415; 80053; 80307; 82962; 85025; 96360; 99284; G0480; J7030

== ENCOUNTER 2017-09-11 19:48 | Inpatient (IN) | payer MEDICARE, MEDICAID ==
[~2017-09-11] VITALS: Ht 182.9 cm; Wt 140.2 kg
[~2017-09-11 19:48] MED LIST changes: +CIPR-245 PO; +HYDR-4061 PO; -PRED20 PO
[2017-09-11] MEDS ORDERED: ZOLPIDEM TARTRATE 10 MG TABLET PO PRN (20:15)
[2017-09-12] MEDS ORDERED: PANTOPRAZOLE SODIUM 40 MG DR TABLET PO ONE (00:45)
[2017-09-12] MEDS ORDERED: DEXTROSE 50%-WATER 25 GM/50 ML SYRINGE IVP PRN (00:45)
[2017-09-12 01:27] VITALS: BP 139/86
[2017-09-12] MEDS ORDERED: -PHARMACY VACCINE NOTE- MISC ONE (02:15)
[2017-09-12] MEDS ORDERED: INFLUENZA VIRUS VACCINE QVS 2017-18 (3YR+)/PF 60 MCG/0.5 ML SYRINGE IM ONE (02:15)
[2017-09-12] MEDS: SODIUM CHLORIDE 1 GM TABLET PO SCH ×3 (05:51→17:24)
[2017-09-12] MEDS: NITROFURANTOIN MACROCRYSTAL 100 MG CAPSULE PO SCH ×3 (05:51→17:24)
[2017-09-12 06:03] LABS: GLUCOMETER DEV NAME(LOC) 3EX 1; GLUCOSE,POINT OF CARE 240 MG/DL (70-110)
[2017-09-12] MEDS: MetFORMIN HCL 500 MG TABLET PO SCH ×2 (06:44→17:24)
[2017-09-12] MEDS: INSULIN ASPART 100 UNITS/ML SQ PRN ×4 (06:47→21:06)
[2017-09-12] MEDS: CARVEDILOL 3.125 MG TABLET PO SCH ×2 (08:34→16:31)
[2017-09-12] MEDS: FLUTICASONE/VILANTEROL 200-25 MCG/INH INHALER [14] IH SCH (08:34)
[2017-09-12] MEDS: SitaGLIPtin PHOSPHATE 50 MG TABLET PO SCH (08:35)
[2017-09-12] MEDS: PANTOPRAZOLE SODIUM 40 MG DR TABLET PO SCH (08:37)
[2017-09-12 09:55] VITALS: BP 122/92
[2017-09-12 11:38] LABS: GLUCOMETER DEV NAME(LOC) 3EX 1; GLUCOSE,POINT OF CARE 276 MG/DL (70-110)
[2017-09-12] MEDS: LORazepam 2 MG TABLET PO PRN (13:36)
[2017-09-12 14:50] LABS: ANION GAP 5 mmol/L (8-16); CALCIUM, TOTAL 8.9 mg/dL (8.8-10.5); CARBON DIOXIDE 32 mmol/L (22-29); CHLORIDE 95 mmol/L (98-107); CREATININE 0.92 mg/dL (0.60-1.30); GLOMERULAR FILTR. RATE CALC > 60 mL/min (>60); GLUCOSE,RANDOM 270 mg/dL (70-110); POTASSIUM 4.4 mmol/L (3.5-5.1); SODIUM SERUM 132 mmol/L (136-145); UREA NITROGEN, BLOOD 21 mg/dL (7-18)
[2017-09-12 19:14] VITALS: BP 116/80
[2017-09-12] MEDS: ROSUVASTATIN CALCIUM 10 MG TABLET PO SCH (21:01)
[2017-09-12] MEDS: INSULIN GLARGINE,HUM.REC.ANLOG 100 UNITS/ML SQ SCH (21:05)
[2017-09-12 21:23] LABS: GLUCOMETER DEV NAME(LOC) 3EX 1; GLUCOSE,POINT OF CARE 281 MG/DL (70-110)
[2017-09-13] MEDS: NITROFURANTOIN MACROCRYSTAL 100 MG CAPSULE PO SCH ×4 (00:47→18:06)
[2017-09-13] MEDS: SODIUM CHLORIDE 1 GM TABLET PO SCH ×4 (00:47→18:06)
[2017-09-13] MEDS: LORazepam 2 MG TABLET PO PRN ×2 (02:48→09:43)
[2017-09-13 03:42] VITALS: BP 110/79
[2017-09-13 05:33] LABS: GLUCOMETER DEV NAME(LOC) 3EI B; GLUCOSE,POINT OF CARE 244 MG/DL (70-110)
[2017-09-13] MEDS: MetFORMIN HCL 500 MG TABLET PO SCH ×2 (06:46→16:24)
[2017-09-13] MEDS: INSULIN ASPART 100 UNITS/ML SQ PRN ×4 (06:59→20:41)
[2017-09-13 07:28] LABS: ANION GAP 5 mmol/L (8-16); CALCIUM, TOTAL 8.8 mg/dL (8.8-10.5); CARBON DIOXIDE 30 mmol/L (22-29); CHLORIDE 98 mmol/L (98-107); GLOMERULAR FILTR. RATE CALC > 60 mL/min (>60); GLUCOSE,RANDOM 234 mg/dL (70-110); POTASSIUM 4.7 mmol/L (3.5-5.1); SODIUM SERUM 133 mmol/L (136-145); UREA NITROGEN, BLOOD 15 mg/dL (7-18)
[2017-09-13] MEDS: FLUTICASONE/VILANTEROL 200-25 MCG/INH INHALER [14] IH SCH (08:37)
[2017-09-13] MEDS: SitaGLIPtin PHOSPHATE 50 MG TABLET PO SCH (08:38)
[2017-09-13] MEDS: CARVEDILOL 3.125 MG TABLET PO SCH ×2 (08:38→16:24)
[2017-09-13] MEDS: PANTOPRAZOLE SODIUM 40 MG DR TABLET PO SCH (08:38)
[2017-09-13 09:15] VITALS: BP 132/89
[2017-09-13 09:22] LABS: GLUCOMETER DEV NAME(LOC) 3EX 1; GLUCOSE,POINT OF CARE 235 MG/DL (70-110)
[2017-09-13] MEDS: HALOPERIDOL 5 MG TABLET PO PRN (09:43)
[2017-09-13] MEDS ORDERED: HALOPERIDOL LACTATE 5 MG/ML VIAL ONE (10:58)
[2017-09-13] MEDS ORDERED: DiphenhydrAMINE HCL 50 MG/ML VIAL ONE (10:58)
[2017-09-13] MEDS ORDERED: DiphenhydrAMINE HCL 50 MG/ML VIAL IM ONE (11:00)
[2017-09-13] MEDS ORDERED: LORazepam 2 MG/ML VIAL IM ONE (11:00)
[2017-09-13] MEDS ORDERED: HALOPERIDOL LACTATE 5 MG/ML VIAL IM ONE (11:00)
[2017-09-13 11:28] LABS: GLUCOMETER DEV NAME(LOC) 3EX 1; GLUCOSE,POINT OF CARE 188 MG/DL (70-110)
[2017-09-13] MEDS: NICOTINE 14 MG/24 HOUR PATCH TD SCH (12:40)
[2017-09-13] MEDS: BuPROPion HCL 150 MG SR TABLET PO SCH (13:37)
[2017-09-13] MEDS: BENZTROPINE MESYLATE 1 MG TABLET PO SCH (16:24)
[2017-09-13] MEDS: ClonazePAM 0.5 MG TABLET PO SCH (16:24)
[2017-09-13 16:53] LABS: GLUCOMETER DEV NAME(LOC) 3EX 1; GLUCOSE,POINT OF CARE 164 MG/DL (70-110)
[2017-09-13 16:56] VITALS: BP 132/88
[2017-09-13] MEDS: QUEtiapine FUMARATE 200 MG TABLET PO SCH (20:15)
[2017-09-13] MEDS: HALOPERIDOL 10 MG TABLET PO SCH (20:15)
[2017-09-13] MEDS: TraZODone HCL 150 MG TABLET PO SCH (20:15)
[2017-09-13] MEDS: ROSUVASTATIN CALCIUM 10 MG TABLET PO SCH (20:15)
[2017-09-13] MEDS: INSULIN GLARGINE,HUM.REC.ANLOG 100 UNITS/ML SQ SCH (20:40)
[2017-09-13 20:57] LABS: GLUCOMETER DEV NAME(LOC) 3EX 1; GLUCOSE,POINT OF CARE 201 MG/DL (70-110)
[2017-09-14] MEDS: NITROFURANTOIN MACROCRYSTAL 100 MG CAPSULE PO SCH ×4 (00:49→17:28)
[2017-09-14] MEDS: SODIUM CHLORIDE 1 GM TABLET PO SCH ×3 (00:49→16:22)
[2017-09-14 05:28] LABS: GLUCOMETER DEV NAME(LOC) 3EI B; GLUCOSE,POINT OF CARE 175 MG/DL (70-110)
[2017-09-14 06:18] LABS: BASOPHILS % (AUTO) 0.3 % (0.0-2.0); EOSINOPHILS % (AUTO) 0.8 % (1.0-6.0); HEMATOCRIT 35.7 % (41-53); HEMOGLOBIN 12.2 g/dL (13.5-17.5); LYMPHOCYTES # (AUTO) 2.1 K/uL (1.0-4.8); LYMPHOCYTES % (AUTO) 23.2 % (22.0-44.0); MEAN CORPUSCULAR HEMOGLOBIN 29.4 pg (26.0-34.0); MEAN CORPUSCULAR HGB CONC 34.3 G/dL (31.0-37.0); MEAN CORPUSCULAR VOLUME 86 fL (80-100); MONOCYTES # (AUTO) 0.6 K/uL (0.1-1.0); MONOCYTES % (AUTO) 6.3 % (2.0-9.0); NEUTROPHILS # (AUTO) 6.2 K/uL (1.8-7.7); NEUTROPHILS % (AUTO) 69.4 % (40.0-70.0); PLATELET COUNT (AUTO) 352 K/uL (150-450); RED BLOOD CELL COUNT(AUTO) 4.15 MIL/uL (4.50-5.90); RED CELL DISTRIBUTION WIDTH 14.6 % (11.5-14.5)
[2017-09-14] MEDS: INSULIN ASPART 100 UNITS/ML SQ PRN ×3 (07:06→20:44)
[2017-09-14] MEDS: MetFORMIN HCL 500 MG TABLET PO SCH ×2 (07:23→16:46)
[2017-09-14] MEDS: FLUTICASONE/VILANTEROL 200-25 MCG/INH INHALER [14] IH SCH (08:39)
[2017-09-14] MEDS: PANTOPRAZOLE SODIUM 40 MG DR TABLET PO SCH (08:40)
[2017-09-14] MEDS: BENZTROPINE MESYLATE 1 MG TABLET PO SCH ×2 (08:40→16:21)
[2017-09-14] MEDS: CARVEDILOL 3.125 MG TABLET PO SCH ×2 (08:40→16:20)
[2017-09-14] MEDS: ClonazePAM 0.5 MG TABLET PO SCH ×2 (08:40→16:21)
[2017-09-14] MEDS: SitaGLIPtin PHOSPHATE 50 MG TABLET PO SCH (08:40)
[2017-09-14] MEDS: BuPROPion HCL 150 MG SR TABLET PO SCH (08:41)
[2017-09-14] MEDS: NICOTINE 14 MG/24 HOUR PATCH TD SCH (08:41)
[2017-09-14 09:05] VITALS: BP 123/96
[2017-09-14] MEDS: HALOPERIDOL 5 MG TABLET PO PRN ×2 (11:04→12:45)
[2017-09-14 11:23] LABS: GLUCOMETER DEV NAME(LOC) 3EX 1; GLUCOSE,POINT OF CARE 166 MG/DL (70-110)
[2017-09-14] MEDS: LORazepam 2 MG TABLET PO PRN ×2 (12:45→21:28)
[2017-09-14 20:06] VITALS: BP 107/69
[2017-09-14] MEDS: ROSUVASTATIN CALCIUM 10 MG TABLET PO SCH (20:22)
[2017-09-14] MEDS: TraZODone HCL 150 MG TABLET PO SCH (20:23)
[2017-09-14] MEDS: QUEtiapine FUMARATE 200 MG TABLET PO SCH (20:23)
[2017-09-14] MEDS: HALOPERIDOL 10 MG TABLET PO SCH (20:23)
[2017-09-14] MEDS: INSULIN GLARGINE,HUM.REC.ANLOG 100 UNITS/ML SQ SCH (20:45)
[2017-09-15] MEDS: SODIUM CHLORIDE 1 GM TABLET PO SCH ×4 (01:26→23:53)
[2017-09-15] MEDS: NITROFURANTOIN MACROCRYSTAL 100 MG CAPSULE PO SCH ×5 (01:26→23:52)
[2017-09-15 06:17] LABS: GLUCOMETER DEV NAME(LOC) 3EI B; GLUCOSE,POINT OF CARE 176 MG/DL (70-110)
[2017-09-15 07:16] VITALS: BP 129/63
[2017-09-15] MEDS: MetFORMIN HCL 500 MG TABLET PO SCH ×2 (07:26→16:59)
[2017-09-15] MEDS: INSULIN ASPART 100 UNITS/ML SQ PRN ×3 (07:33→20:25)
[2017-09-15 08:00] LABS: ANION GAP 8 mmol/L (8-16); CALCIUM, TOTAL 9.1 mg/dL (8.8-10.5); CARBON DIOXIDE 28 mmol/L (22-29); CHLORIDE 101 mmol/L (98-107); CREATININE 0.73 mg/dL (0.60-1.30); GLOMERULAR FILTR. RATE CALC > 60 mL/min (>60); GLUCOSE,RANDOM 189 mg/dL (70-110); POTASSIUM 4.6 mmol/L (3.5-5.1); SODIUM SERUM 137 mmol/L (136-145); UREA NITROGEN, BLOOD 13 mg/dL (7-18)
[2017-09-15] MEDS: NICOTINE 14 MG/24 HOUR PATCH TD SCH (08:30)
[2017-09-15] MEDS: SitaGLIPtin PHOSPHATE 50 MG TABLET PO SCH (08:30)
[2017-09-15] MEDS: CARVEDILOL 3.125 MG TABLET PO SCH ×2 (08:30→16:22)
[2017-09-15] MEDS: PANTOPRAZOLE SODIUM 40 MG DR TABLET PO SCH (08:30)
[2017-09-15] MEDS: ClonazePAM 0.5 MG TABLET PO SCH ×2 (08:30→16:24)
[2017-09-15] MEDS: BuPROPion HCL 150 MG SR TABLET PO SCH (08:30)
[2017-09-15] MEDS: FLUTICASONE/VILANTEROL 200-25 MCG/INH INHALER [14] IH SCH (08:31)
[2017-09-15] MEDS: BENZTROPINE MESYLATE 1 MG TABLET PO SCH ×2 (08:32→16:23)
[2017-09-15 09:30] LABS: APPEARANCE,URINE CLEAR (CLEAR); BILIRUBIN,URINE NEGATIVE (NEGATIVE); GLUCOSE, URINE (UA) NEGATIVE (NEGATIVE); KETONES,URINE NEGATIVE (NEGATIVE); LEUKOCYTE ESTERASE ,URINE NEGATIVE (NEGATIVE); NITRATE,URINE NEGATIVE (NEGATIVE); OCCULT BLOOD,URINE NEGATIVE (NEGATIVE); PH,URINE 6.5 (5.0-8.0); PROTEIN,URINE NEGATIVE (NEGATIVE); UROBILINOGEN,URINE 0.2 mg/dL (<=1.0)
[2017-09-15 10:32] VITALS: BP 124/84
[2017-09-15 11:38] LABS: GLUCOMETER DEV NAME(LOC) 3EX 1; GLUCOSE,POINT OF CARE 176 MG/DL (70-110)
[2017-09-15 11:38] LABS: GLUCOMETER DEV NAME(LOC) 3EX 1; GLUCOSE,POINT OF CARE 107 MG/DL (70-110)
[2017-09-15] MEDS: HALOPERIDOL 5 MG TABLET PO PRN (14:50)
[2017-09-15] MEDS: LORazepam 2 MG TABLET PO PRN (16:29)
[2017-09-15 16:32] LABS: GLUCOMETER DEV NAME(LOC) 3EX 1; GLUCOSE,POINT OF CARE 111 MG/DL (70-110)
[2017-09-15 18:42] VITALS: BP 131/83
[2017-09-15] MEDS: TraZODone HCL 150 MG TABLET PO SCH (20:00)
[2017-09-15] MEDS: ROSUVASTATIN CALCIUM 10 MG TABLET PO SCH (20:00)
[2017-09-15] MEDS: HALOPERIDOL 10 MG TABLET PO SCH (20:01)
[2017-09-15] MEDS: QUEtiapine FUMARATE 200 MG TABLET PO SCH (20:01)
[2017-09-15 20:08] LABS: GLUCOMETER DEV NAME(LOC) 3EX 1; GLUCOSE,POINT OF CARE 220 MG/DL (70-110)
[2017-09-15] MEDS: INSULIN GLARGINE,HUM.REC.ANLOG 100 UNITS/ML SQ SCH (20:22)
[2017-09-16 00:30] VITALS: BP 139/65
[2017-09-16 06:03] LABS: GLUCOMETER DEV NAME(LOC) 3EI B; GLUCOSE,POINT OF CARE 155 MG/DL (70-110)
[2017-09-16] MEDS: NITROFURANTOIN MACROCRYSTAL 100 MG CAPSULE PO SCH ×3 (06:26→17:28)
[2017-09-16] MEDS: MetFORMIN HCL 500 MG TABLET PO SCH ×2 (06:28→17:01)
[2017-09-16] MEDS: INSULIN ASPART 100 UNITS/ML SQ PRN ×4 (06:28→20:14)
[2017-09-16] MEDS: BENZTROPINE MESYLATE 1 MG TABLET PO SCH ×2 (08:15→16:30)
[2017-09-16] MEDS: FLUTICASONE/VILANTEROL 200-25 MCG/INH INHALER [14] IH SCH (08:15)
[2017-09-16] MEDS: PANTOPRAZOLE SODIUM 40 MG DR TABLET PO SCH (08:15)
[2017-09-16] MEDS: CARVEDILOL 3.125 MG TABLET PO SCH ×2 (08:15→16:29)
[2017-09-16] MEDS: SODIUM CHLORIDE 1 GM TABLET PO SCH (08:15)
[2017-09-16] MEDS: SitaGLIPtin PHOSPHATE 50 MG TABLET PO SCH (08:15)
[2017-09-16] MEDS: ClonazePAM 0.5 MG TABLET PO SCH ×2 (08:15→16:30)
[2017-09-16] MEDS: BuPROPion HCL 150 MG SR TABLET PO SCH (08:16)
[2017-09-16] MEDS: NICOTINE 14 MG/24 HOUR PATCH TD SCH (08:23)
[2017-09-16 08:29] VITALS: BP 126/78
[2017-09-16 10:58] LABS: GLUCOMETER DEV NAME(LOC) 3EX 1; GLUCOSE,POINT OF CARE 179 MG/DL (70-110)
[2017-09-16] MEDS: HALOPERIDOL 5 MG TABLET PO PRN (12:25)
[2017-09-16] MEDS: LORazepam 2 MG TABLET PO PRN (12:25)
[2017-09-16 16:48] LABS: GLUCOMETER DEV NAME(LOC) 3EX 1; GLUCOSE,POINT OF CARE 191 MG/DL (70-110)
[2017-09-16 17:13] VITALS: BP 128/66
[2017-09-16] MEDS: HALOPERIDOL 10 MG TABLET PO SCH (20:03)
[2017-09-16] MEDS: TraZODone HCL 150 MG TABLET PO SCH (20:04)
[2017-09-16] MEDS: ROSUVASTATIN CALCIUM 10 MG TABLET PO SCH (20:04)
[2017-09-16] MEDS: QUEtiapine FUMARATE 200 MG TABLET PO SCH (20:04)
[2017-09-16 20:08] LABS: GLUCOMETER DEV NAME(LOC) 3EX 1; GLUCOSE,POINT OF CARE 248 MG/DL (70-110)
[2017-09-16] MEDS: INSULIN GLARGINE,HUM.REC.ANLOG 100 UNITS/ML SQ SCH (20:13)
[2017-09-17 00:20] VITALS: BP 128/76
[2017-09-17] MEDS: NITROFURANTOIN MACROCRYSTAL 100 MG CAPSULE PO SCH ×4 (00:35→17:25)
[2017-09-17 06:13] LABS: GLUCOMETER DEV NAME(LOC) 3EI B; GLUCOSE,POINT OF CARE 163 MG/DL (70-110)
[2017-09-17] MEDS: INSULIN ASPART 100 UNITS/ML SQ PRN ×3 (06:48→20:36)
[2017-09-17] MEDS: MetFORMIN HCL 500 MG TABLET PO SCH ×2 (07:06→17:25)
[2017-09-17] MEDS: BuPROPion HCL 150 MG SR TABLET PO SCH (08:08)
[2017-09-17] MEDS: PANTOPRAZOLE SODIUM 40 MG DR TABLET PO SCH (08:08)
[2017-09-17] MEDS: CARVEDILOL 3.125 MG TABLET PO SCH ×2 (08:09→16:19)
[2017-09-17] MEDS: NICOTINE 14 MG/24 HOUR PATCH TD SCH (08:09)
[2017-09-17] MEDS: SitaGLIPtin PHOSPHATE 50 MG TABLET PO SCH (08:09)
[2017-09-17] MEDS: BENZTROPINE MESYLATE 1 MG TABLET PO SCH ×2 (08:09→16:19)
[2017-09-17] MEDS: ClonazePAM 0.5 MG TABLET PO SCH ×2 (08:09→16:20)
[2017-09-17] MEDS: FLUTICASONE/VILANTEROL 200-25 MCG/INH INHALER [14] IH SCH (08:10)
[2017-09-17 08:29] VITALS: BP 131/72
[2017-09-17 11:22] LABS: GLUCOMETER DEV NAME(LOC) 3EX 1; GLUCOSE,POINT OF CARE 112 MG/DL (70-110)
[2017-09-17] MEDS: HALOPERIDOL 5 MG TABLET PO PRN (12:52)
[2017-09-17] MEDS: LORazepam 2 MG TABLET PO PRN (12:52)
[2017-09-17 16:38] LABS: GLUCOMETER DEV NAME(LOC) 3EX 1; GLUCOSE,POINT OF CARE 126 MG/DL (70-110)
[2017-09-17 17:00] VITALS: BP 126/76
[2017-09-17] MEDS: QUEtiapine FUMARATE 200 MG TABLET PO SCH (20:13)
[2017-09-17] MEDS: HALOPERIDOL 10 MG TABLET PO SCH (20:13)
[2017-09-17] MEDS: ROSUVASTATIN CALCIUM 10 MG TABLET PO SCH (20:13)
[2017-09-17] MEDS: TraZODone HCL 150 MG TABLET PO SCH (20:14)
[2017-09-17 20:28] LABS: GLUCOMETER DEV NAME(LOC) 3EX 1; GLUCOSE,POINT OF CARE 187 MG/DL (70-110)
[2017-09-17] MEDS: INSULIN GLARGINE,HUM.REC.ANLOG 100 UNITS/ML SQ SCH (20:34)
[2017-09-18] MEDS: NITROFURANTOIN MACROCRYSTAL 100 MG CAPSULE PO SCH ×3 (00:16→12:46)
[2017-09-18] MEDS: MetFORMIN HCL 500 MG TABLET PO SCH (06:40)
[2017-09-18 06:59] LABS: GLUCOMETER DEV NAME(LOC) 3EI B; GLUCOSE,POINT OF CARE 171 MG/DL (70-110)
[2017-09-18] MEDS: INSULIN ASPART 100 UNITS/ML SQ PRN (07:04)
[2017-09-18 07:25] LABS: ANION GAP 5 mmol/L (8-16); CALCIUM, TOTAL 9.6 mg/dL (8.8-10.5); CARBON DIOXIDE 34 mmol/L (22-29); CHLORIDE 101 mmol/L (98-107); CREATININE 0.75 mg/dL (0.60-1.30); GLOMERULAR FILTR. RATE CALC > 60 mL/min (>60); GLUCOSE,RANDOM 168 mg/dL (70-110); POTASSIUM 4.7 mmol/L (3.5-5.1); SODIUM SERUM 140 mmol/L (136-145); UREA NITROGEN, BLOOD 16 mg/dL (7-18)
[2017-09-18] MEDS: FLUTICASONE/VILANTEROL 200-25 MCG/INH INHALER [14] IH SCH (08:01)
[2017-09-18] MEDS: BENZTROPINE MESYLATE 1 MG TABLET PO SCH (08:02)
[2017-09-18] MEDS: CARVEDILOL 3.125 MG TABLET PO SCH (08:02)
[2017-09-18] MEDS: SitaGLIPtin PHOSPHATE 50 MG TABLET PO SCH (08:02)
[2017-09-18] MEDS: NICOTINE 14 MG/24 HOUR PATCH TD SCH (08:03)
[2017-09-18] MEDS: BuPROPion HCL 150 MG SR TABLET PO SCH (08:03)
[2017-09-18] MEDS: ClonazePAM 0.5 MG TABLET PO SCH (08:03)
[2017-09-18] MEDS: PANTOPRAZOLE SODIUM 40 MG DR TABLET PO SCH (08:03)
[2017-09-18 08:18] VITALS: BP 131/67
[2017-09-18 09:38] LABS: GLUCOMETER DEV NAME(LOC) 3EX 1; GLUCOSE,POINT OF CARE 153 MG/DL (70-110)
[2017-09-18 11:43] LABS: GLUCOMETER DEV NAME(LOC) 3EX 1; GLUCOSE,POINT OF CARE 118 MG/DL (70-110)
[2017-09-18] MEDS ORDERED: NITR100 PO (12:46)
== END 2017-09-18 13:30 | disposition home or self-care (01) | DRG 885 ==
LOC: 3EX 09-12 00:24
PROVIDERS: ADMIT Psychiatry & Neurology Psychiatry; ATTEND Psychiatry & Neurology Psychiatry
PROC: 5A09457 Assistance with Respiratory Ventilation, 24-96 Consecutive Hours, Continuous Positive Airway Pressure (ICD-10-PCS; principal; 2017-09-12)
DX: F20.0 Paranoid schizophrenia (principal); R45.851 Suicidal ideations; E87.1 Hypo-osmolality and hyponatremia; E11.9 Type 2 diabetes mellitus without complications; N13.30 Unspecified hydronephrosis; D72.829 Elevated white blood cell count, unspecified; E78.5 Hyperlipidemia, unspecified; N39.0 Urinary tract infection, site not specified; E87.6 Hypokalemia; F17.200 Nicotine dependence, unspecified, uncomplicated; G47.33 Obstructive sleep apnea (adult) (pediatric); I10 Essential (primary) hypertension; I25.10 Atherosclerotic heart disease of native coronary artery without angina pectoris; J44.9 Chronic obstructive pulmonary disease, unspecified; K21.9 Gastro-esophageal reflux disease without esophagitis; F10.20 Alcohol dependence, uncomplicated; Z91.14 Patient's other noncompliance with medication regimen
CPT/HCPCS: 82962; 87081; 94660; J1200; J1630; J1815; J2060

== ENCOUNTER 2018-01-30 19:07 | Emergency (ER) | payer MEDICARE, OTHER ==
[~2018-01-30] VITALS: Ht 182.9 cm; Wt 109.0 kg
[~2018-01-30 19:07] MED LIST changes: -CIPR-245 PO; -HYDR-4061 PO; -LISI-661 PO; -METF500T4 PO; +METF500T6 PO; +NITR100 PO
[2018-01-30 19:33] LABS: GLUCOSE,POINT OF CARE 230 MG/DL (70-110)
[2018-01-30 20:13] LABS: BASOPHILS % (AUTO) 0.8 % (0.0-2.0); EOSINOPHILS % (AUTO) 1.9 % (1.0-6.0); HEMATOCRIT 42.3 % (41-53); HEMOGLOBIN 15.3 g/dL (13.5-17.5); LYMPHOCYTES # (AUTO) 3.2 K/uL (1.0-4.8); LYMPHOCYTES % (AUTO) 27.9 % (22.0-44.0); MEAN CORPUSCULAR HEMOGLOBIN 30.7 pg (26.0-34.0); MEAN CORPUSCULAR HGB CONC 36.1 G/dL (31.0-37.0); MEAN CORPUSCULAR VOLUME 85 fL (80-100); MONOCYTES # (AUTO) 0.7 K/uL (0.1-1.0); MONOCYTES % (AUTO) 6.1 % (2.0-9.0); NEUTROPHILS # (AUTO) 7.3 K/uL (1.8-7.7); NEUTROPHILS % (AUTO) 63.3 % (40.0-70.0); PLATELET COUNT (AUTO) 215 K/uL (150-450); RED BLOOD CELL COUNT(AUTO) 4.98 MIL/uL (4.50-5.90); RED CELL DISTRIBUTION WIDTH 13.4 % (11.5-14.5)
[2018-01-30 20:22] LABS: ANION GAP 6 mmol/L (8-16); CALCIUM, TOTAL 8.4 mg/dL (8.8-10.5); CARBON DIOXIDE 31 mmol/L (22-29); CHLORIDE 96 mmol/L (98-107); CREATININE 0.91 mg/dL (0.60-1.30); GLOMERULAR FILTR. RATE CALC > 60 mL/min (>60); GLUCOSE,RANDOM 197 mg/dL (70-110); POTASSIUM 3.7 mmol/L (3.5-5.1); SODIUM SERUM 133 mmol/L (136-145); UREA NITROGEN, BLOOD 7 mg/dL (7-18)
[2018-01-30 20:24] LABS: AMPHET/METH SCREEN,URINE NEGATIVE (NEGATIVE); BARBITURATE SCREEN, URINE NEGATIVE (NEGATIVE); BENZODIAZEPINES SCREEN,URINE NEGATIVE (NEGATIVE); CANNABINOID SCREEN,URINE NEGATIVE (NEGATIVE); COCAINE SCREEN,URINE NEGATIVE (NEGATIVE); METHADONE SCREEN, URINE NEGATIVE (NEGATIVE); OPIATE SCREEN,URINE NEGATIVE (NEGATIVE)
[2018-01-30 20:29] LABS: ALANINE AMINOTRANSFERASE 35 U/L (12-78); ALBUMIN 3.9 g/dL (3.4-5.0); ALKALINE PHOSPHATASE 86 U/L (46-116); ASPARTATE AMINOTRANSFERASE 20 U/L (15-37); BILIRUBIN,TOTAL 0.3 mg/dL (0.1-1.0); TOTAL PROTEIN, SERUM 7.5 g/dL (6.4-8.2)
[2018-01-30 20:32] LABS: PHENCYCLIDINE SCREEN,URINE NEGATIVE (NEGATIVE)
[2018-01-30 20:42] LABS: SALICYLATE 4.8 mg/dL (2.8-20.0)
[2018-01-30 20:53] LABS: ACETAMINOPHEN < 2 mcg/mL (10-30)
[2018-01-30] MEDS ORDERED: ACTIVATED CHARCOAL 50 GM/240 ML SUSPENSION PO ONE (21:45)
[2018-01-31 00:29] VITALS: BP 129/78
== END 2018-01-31 00:45 | disposition home or self-care (01) ==
LOC: EMS 19:09
DX: T43.4X1A Poisoning by butyrophenone and thiothixene neuroleptics, accidental (unintentional), initial encounter (principal); F20.9 Schizophrenia, unspecified; I10 Essential (primary) hypertension; E11.9 Type 2 diabetes mellitus without complications; J44.9 Chronic obstructive pulmonary disease, unspecified; F32.9 Major depressive disorder, single episode, unspecified; K21.9 Gastro-esophageal reflux disease without esophagitis; Y92.89 Other specified places as the place of occurrence of the external cause; F17.210 Nicotine dependence, cigarettes, uncomplicated; Z79.899 Other long term (current) drug therapy
CPT/HCPCS: 36415; 80053; 80307; 82962; 85025; 93005; 99285; G0480 ×2; G0481

== ENCOUNTER 2018-08-09 09:07 | Inpatient (IN) | payer MEDICARE, OTHER, MEDICAID ==
[~2018-08-09] VITALS: Ht 185.4 cm; Wt 152.7 kg
[~2018-08-09 09:07] MED LIST changes: +METF-960 PO; -METF500T6 PO; -NITR100 PO
[2018-08-09 09:34] LABS: GLUCOSE,POINT OF CARE 243 MG/DL (70-110)
[2018-08-09 11:05] LABS: BASOPHILS % (AUTO) 0.7 % (0.0-2.0); EOSINOPHILS % (AUTO) 0.6 % (1.0-6.0); HEMATOCRIT 41.8 % (41-53); HEMOGLOBIN 15.1 g/dL (13.5-17.5); LYMPHOCYTES # (AUTO) 1.4 K/uL (1.0-4.8); LYMPHOCYTES % (AUTO) 13.2 % (22.0-44.0); MEAN CORPUSCULAR HEMOGLOBIN 30.6 pg (26.0-34.0); MEAN CORPUSCULAR HGB CONC 36.1 G/dL (31.0-37.0); MEAN CORPUSCULAR VOLUME 85 fL (80-100); MONOCYTES # (AUTO) 0.7 K/uL (0.1-1.0); MONOCYTES % (AUTO) 6.3 % (2.0-9.0); NEUTROPHILS # (AUTO) 8.5 K/uL (1.8-7.7); NEUTROPHILS % (AUTO) 79.2 % (40.0-70.0); PLATELET COUNT (AUTO) 225 K/uL (150-450); RED BLOOD CELL COUNT(AUTO) 4.94 MIL/uL (4.50-5.90); RED CELL DISTRIBUTION WIDTH 13.7 % (11.5-14.5)
[2018-08-09] MEDS ORDERED: ZOLPIDEM TARTRATE 10 MG TABLET PO PRN (11:15)
[2018-08-09 11:26] LABS: ALANINE AMINOTRANSFERASE 43 U/L (12-78); ALKALINE PHOSPHATASE 110 U/L (46-116); ANION GAP 9 mmol/L (8-16); ASPARTATE AMINOTRANSFERASE 23 U/L (15-37); BILIRUBIN,TOTAL 0.5 mg/dL (0.1-1.0); CALCIUM, TOTAL 9.3 mg/dL (8.8-10.5); CARBON DIOXIDE 28 mmol/L (22-29); CHLORIDE 88 mmol/L (98-107); CREATININE 0.74 mg/dL (0.60-1.30); GLOMERULAR FILTR. RATE CALC > 60 mL/min (>60); GLUCOSE,RANDOM 211 mg/dL (70-110); POTASSIUM 4.1 mmol/L (3.5-5.1); SODIUM SERUM 125 mmol/L (136-145); TOTAL PROTEIN, SERUM 7.9 g/dL (6.4-8.2); UREA NITROGEN, BLOOD 6 mg/dL (7-18)
[2018-08-09] MEDS ORDERED: HALOPERIDOL LACTATE 5 MG/ML VIAL IM ONE (11:45)
[2018-08-09] MEDS ORDERED: LORazepam 2 MG/ML VIAL IM ONE (11:45)
[2018-08-09] MEDS ORDERED: SODIUM CHLORIDE 1 GM TABLET PO ONE (12:15)
[2018-08-09] MEDS ORDERED: INSULIN REGULAR, HUMAN 100 UNITS/ML SQ ONE (12:15)
[2018-08-09 13:32] VITALS: BP 154/76
[2018-08-09 13:36] VITALS: BP 154/76
[2018-08-09] MEDS ORDERED: PNEUMOCOCCAL VACCINE POLYVALENT 0.5 ML VIAL [PPSV23] IM ONE (14:15)
[2018-08-09] MEDS: BENZTROPINE MESYLATE 1 MG TABLET PO SCH (16:36)
[2018-08-09] MEDS: LORazepam 2 MG TABLET PO PRN (16:36)
[2018-08-09] MEDS: HALOPERIDOL 5 MG TABLET PO PRN (16:36)
[2018-08-09 17:00] VITALS: BP 149/99
[2018-08-09 17:49] LABS: GLUCOMETER DEV NAME(LOC) 3EX.; GLUCOSE,POINT OF CARE 178 MG/DL (70-110)
[2018-08-09] MEDS ORDERED: DEXTROSE 50%-WATER 25 GM/50 ML SYRINGE IVP PRN (18:15)
[2018-08-09] MEDS: HALOPERIDOL 10 MG TABLET PO SCH (21:13)
[2018-08-09] MEDS: QUEtiapine FUMARATE 200 MG TABLET PO SCH (21:13)
[2018-08-09] MEDS: TraZODone HCL 100 MG TABLET PO SCH (21:13)
[2018-08-09] MEDS: NICOTINE 21 MG/24 HOUR PATCH TD SCH (21:13)
[2018-08-09 22:24] LABS: GLUCOMETER DEV NAME(LOC) 3EX.; GLUCOSE,POINT OF CARE 161 MG/DL (70-110)
[2018-08-09] MEDS: INSULIN GLARGINE,HUM.REC.ANLOG 100 UNITS/ML SQ SCH (22:27)
[2018-08-09] MEDS: INSULIN LISPRO 100 UNITS/ML SQ PRN (22:28)
[2018-08-10 05:55] LABS: GLUCOMETER DEV NAME(LOC) 3EX.; GLUCOSE,POINT OF CARE 180 MG/DL (70-110)
[2018-08-10] MEDS: MetFORMIN HCL 500 MG TABLET PO SCH ×2 (06:49→16:56)
[2018-08-10] MEDS: INSULIN LISPRO 100 UNITS/ML SQ PRN ×4 (06:57→21:46)
[2018-08-10 07:08] LABS: CHOL/HDL RATIO 3.8 (4.2-7.3); FREE T4 (FREE THYROXINE) 0.88 ng/dL (0.76-1.46); THYROID STIMULATING HORMONE 0.99 uIU/mL (0.36-3.74)
[2018-08-10 09:49] VITALS: BP 115/56
[2018-08-10] MEDS: BuPROPion HCL XL 150 MG ER TABLET PO SCH (09:49)
[2018-08-10] MEDS: PANTOPRAZOLE SODIUM 40 MG DR TABLET PO SCH (09:49)
[2018-08-10] MEDS: CARVEDILOL 3.125 MG TABLET PO SCH ×2 (09:49→16:56)
[2018-08-10] MEDS: SitaGLIPtin PHOSPHATE 50 MG TABLET PO SCH (09:49)
[2018-08-10] MEDS: BENZTROPINE MESYLATE 1 MG TABLET PO SCH ×2 (09:49→16:56)
[2018-08-10] MEDS: NICOTINE 21 MG/24 HOUR PATCH TD SCH (09:50)
[2018-08-10] MEDS: SERTRALINE HCL 50 MG TABLET PO SCH (09:50)
[2018-08-10] MEDS: FLUTICASONE/VILANTEROL 200-25 MCG/INH INHALER [14] IH SCH (09:52)
[2018-08-10 11:09] LABS: GLUCOMETER DEV NAME(LOC) 3EX.; GLUCOSE,POINT OF CARE 221 MG/DL (70-110)
[2018-08-10] MEDS: LORazepam 2 MG TABLET PO PRN ×2 (14:41→19:46)
[2018-08-10 15:31] LABS: ALANINE AMINOTRANSFERASE 37 U/L (12-78); ALBUMIN 3.9 g/dL (3.4-5.0); ALKALINE PHOSPHATASE 98 U/L (46-116); ANION GAP 10 mmol/L (8-16); ASPARTATE AMINOTRANSFERASE 22 U/L (15-37); BILIRUBIN,TOTAL 0.3 mg/dL (0.1-1.0); CALCIUM, TOTAL 8.9 mg/dL (8.8-10.5); CARBON DIOXIDE 27 mmol/L (22-29); CHLORIDE 95 mmol/L (98-107); CREATININE 0.75 mg/dL (0.60-1.30); GLOMERULAR FILTR. RATE CALC > 60 mL/min (>60); GLUCOSE,RANDOM 178 mg/dL (70-110); POTASSIUM 4.3 mmol/L (3.5-5.1); SODIUM SERUM 132 mmol/L (136-145); TOTAL PROTEIN, SERUM 6.9 g/dL (6.4-8.2); UREA NITROGEN, BLOOD 9 mg/dL (7-18)
[2018-08-10 16:34] LABS: GLUCOMETER DEV NAME(LOC) 3EX.; GLUCOSE,POINT OF CARE 143 MG/DL (70-110)
[2018-08-10] MEDS: SODIUM CHLORIDE 1 GM TABLET PO SCH (16:56)
[2018-08-10 18:18] LABS: APPEARANCE,URINE CLEAR (CLEAR); BILIRUBIN,URINE NEGATIVE (NEGATIVE); GLUCOSE, URINE (UA) NEGATIVE (NEGATIVE); KETONES,URINE NEGATIVE (NEGATIVE); LEUKOCYTE ESTERASE ,URINE NEGATIVE (NEGATIVE); NITRATE,URINE NEGATIVE (NEGATIVE); OCCULT BLOOD,URINE NEGATIVE (NEGATIVE); PROTEIN,URINE NEGATIVE (NEGATIVE); UROBILINOGEN,URINE 0.2 mg/dL (<=1.0)
[2018-08-10 20:50] VITALS: BP 117/82
[2018-08-10 20:54] LABS: GLUCOMETER DEV NAME(LOC) 3EX.; GLUCOSE,POINT OF CARE 146 MG/DL (70-110)
[2018-08-10] MEDS: QUEtiapine FUMARATE 200 MG TABLET PO SCH (21:27)
[2018-08-10] MEDS: TraZODone HCL 100 MG TABLET PO SCH (21:28)
[2018-08-10] MEDS: HALOPERIDOL 10 MG TABLET PO SCH (21:28)
[2018-08-10] MEDS: INSULIN GLARGINE,HUM.REC.ANLOG 100 UNITS/ML SQ SCH (21:29)
[2018-08-11 02:38] VITALS: BP 147/91
[2018-08-11 05:39] LABS: GLUCOMETER DEV NAME(LOC) 3EX.; GLUCOSE,POINT OF CARE 171 MG/DL (70-110)
[2018-08-11] MEDS: MetFORMIN HCL 500 MG TABLET PO SCH ×2 (06:40→16:52)
[2018-08-11] MEDS: INSULIN LISPRO 100 UNITS/ML SQ PRN ×4 (06:41→20:24)
[2018-08-11 08:06] VITALS: BP 161/95
[2018-08-11] MEDS: CARVEDILOL 3.125 MG TABLET PO SCH ×2 (09:52→16:11)
[2018-08-11] MEDS: BENZTROPINE MESYLATE 1 MG TABLET PO SCH ×2 (09:52→16:11)
[2018-08-11] MEDS: SERTRALINE HCL 50 MG TABLET PO SCH (09:52)
[2018-08-11] MEDS: SitaGLIPtin PHOSPHATE 50 MG TABLET PO SCH (09:52)
[2018-08-11] MEDS: BuPROPion HCL XL 150 MG ER TABLET PO SCH (09:52)
[2018-08-11] MEDS: PANTOPRAZOLE SODIUM 40 MG DR TABLET PO SCH (09:53)
[2018-08-11] MEDS: SODIUM CHLORIDE 1 GM TABLET PO SCH ×3 (09:53→16:16)
[2018-08-11] MEDS: FLUTICASONE/VILANTEROL 200-25 MCG/INH INHALER [14] IH SCH (09:58)
[2018-08-11] MEDS: NICOTINE 21 MG/24 HOUR PATCH TD SCH (09:59)
[2018-08-11 11:39] LABS: GLUCOMETER DEV NAME(LOC) 3EX.; GLUCOSE,POINT OF CARE 203 MG/DL (70-110)
[2018-08-11] MEDS: LORazepam 2 MG TABLET PO PRN (16:14)
[2018-08-11 17:00] LABS: GLUCOMETER DEV NAME(LOC) 3E.C; GLUCOSE,POINT OF CARE 170 MG/DL (70-110)
[2018-08-11 18:11] VITALS: BP 148/89
[2018-08-11] MEDS: HALOPERIDOL 10 MG TABLET PO SCH (20:05)
[2018-08-11] MEDS: QUEtiapine FUMARATE 200 MG TABLET PO SCH (20:05)
[2018-08-11] MEDS: TraZODone HCL 100 MG TABLET PO SCH (20:05)
[2018-08-11] MEDS: INSULIN GLARGINE,HUM.REC.ANLOG 100 UNITS/ML SQ SCH (20:23)
[2018-08-12 06:00] LABS: GLUCOMETER DEV NAME(LOC) 3EX.; GLUCOSE,POINT OF CARE 187 MG/DL (70-110)
[2018-08-12] MEDS: MetFORMIN HCL 500 MG TABLET PO SCH ×2 (06:48→16:20)
[2018-08-12] MEDS: INSULIN LISPRO 100 UNITS/ML SQ PRN ×2 (07:10→17:06)
[2018-08-12 08:00] VITALS: BP 161/98
[2018-08-12] MEDS: BuPROPion HCL XL 150 MG ER TABLET PO SCH (09:26)
[2018-08-12] MEDS: SODIUM CHLORIDE 1 GM TABLET PO SCH ×3 (09:26→16:20)
[2018-08-12] MEDS: SERTRALINE HCL 50 MG TABLET PO SCH (09:27)
[2018-08-12] MEDS: CARVEDILOL 3.125 MG TABLET PO SCH ×2 (09:27→16:20)
[2018-08-12] MEDS: SitaGLIPtin PHOSPHATE 50 MG TABLET PO SCH (09:27)
[2018-08-12] MEDS: PANTOPRAZOLE SODIUM 40 MG DR TABLET PO SCH (09:27)
[2018-08-12] MEDS: BENZTROPINE MESYLATE 1 MG TABLET PO SCH ×2 (09:27→16:21)
[2018-08-12] MEDS: FLUTICASONE/VILANTEROL 200-25 MCG/INH INHALER [14] IH SCH (09:27)
[2018-08-12] MEDS: NICOTINE 21 MG/24 HOUR PATCH TD SCH (09:33)
[2018-08-12 09:45] VITALS: BP 133/80
[2018-08-12 11:40] LABS: GLUCOMETER DEV NAME(LOC) 3EX.; GLUCOSE,POINT OF CARE 129 MG/DL (70-110)
[2018-08-12] MEDS: HALOPERIDOL 5 MG TABLET PO PRN (14:03)
[2018-08-12] MEDS: LORazepam 2 MG TABLET PO PRN (14:03)
[2018-08-12 16:29] LABS: GLUCOMETER DEV NAME(LOC) 3EX.; GLUCOSE,POINT OF CARE 163 MG/DL (70-110)
[2018-08-12 17:06] VITALS: BP 147/83
[2018-08-12] MEDS: QUEtiapine FUMARATE 200 MG TABLET PO SCH (20:21)
[2018-08-12] MEDS: HALOPERIDOL 10 MG TABLET PO SCH (20:21)
[2018-08-12] MEDS: TraZODone HCL 100 MG TABLET PO SCH (20:21)
[2018-08-12] MEDS: INSULIN GLARGINE,HUM.REC.ANLOG 100 UNITS/ML SQ SCH (20:25)
[2018-08-12 20:29] LABS: GLUCOMETER DEV NAME(LOC) 3EX.; GLUCOSE,POINT OF CARE 111 MG/DL (70-110)
[2018-08-13 05:45] LABS: GLUCOMETER DEV NAME(LOC) 3EX.; GLUCOSE,POINT OF CARE 161 MG/DL (70-110)
[2018-08-13] MEDS: MetFORMIN HCL 500 MG TABLET PO SCH ×2 (06:48→17:21)
[2018-08-13] MEDS: INSULIN LISPRO 100 UNITS/ML SQ PRN ×3 (07:04→17:21)
[2018-08-13 07:08] LABS: ALANINE AMINOTRANSFERASE 31 U/L (12-78); ALBUMIN 3.5 g/dL (3.4-5.0); ALKALINE PHOSPHATASE 81 U/L (46-116); ANION GAP 7 mmol/L (8-16); ASPARTATE AMINOTRANSFERASE 14 U/L (15-37); BILIRUBIN,TOTAL 0.3 mg/dL (0.1-1.0); CARBON DIOXIDE 32 mmol/L (22-29); CHLORIDE 96 mmol/L (98-107); CREATININE 0.77 mg/dL (0.60-1.30); GLOMERULAR FILTR. RATE CALC > 60 mL/min (>60); GLUCOSE,RANDOM 167 mg/dL (70-110); POTASSIUM 4.2 mmol/L (3.5-5.1); SODIUM SERUM 135 mmol/L (136-145); TOTAL PROTEIN, SERUM 6.9 g/dL (6.4-8.2); UREA NITROGEN, BLOOD 10 mg/dL (7-18)
[2018-08-13] MEDS: SODIUM CHLORIDE 1 GM TABLET PO SCH ×2 (08:43→12:04)
[2018-08-13] MEDS: BENZTROPINE MESYLATE 1 MG TABLET PO SCH ×2 (08:43→16:16)
[2018-08-13] MEDS: BuPROPion HCL XL 150 MG ER TABLET PO SCH (08:43)
[2018-08-13] MEDS: SERTRALINE HCL 50 MG TABLET PO SCH (08:43)
[2018-08-13] MEDS: SitaGLIPtin PHOSPHATE 50 MG TABLET PO SCH (08:44)
[2018-08-13] MEDS: CARVEDILOL 3.125 MG TABLET PO SCH ×2 (08:44→16:16)
[2018-08-13] MEDS: PANTOPRAZOLE SODIUM 40 MG DR TABLET PO SCH (08:44)
[2018-08-13] MEDS: LORazepam 2 MG TABLET PO PRN (08:46)
[2018-08-13] MEDS: FLUTICASONE/VILANTEROL 200-25 MCG/INH INHALER [14] IH SCH (09:37)
[2018-08-13] MEDS: HALOPERIDOL 5 MG TABLET PO PRN (09:37)
[2018-08-13] MEDS: NICOTINE 21 MG/24 HOUR PATCH TD SCH (09:38)
[2018-08-13 11:39] LABS: GLUCOMETER DEV NAME(LOC) 3EX.; GLUCOSE,POINT OF CARE 122 MG/DL (70-110)
[2018-08-13 12:51] VITALS: BP 136/87
[2018-08-13 16:22] LABS: GLUCOMETER DEV NAME(LOC) 3EX.; GLUCOSE,POINT OF CARE 158 MG/DL (70-110)
[2018-08-13 17:21] VITALS: BP 134/74
[2018-08-13] MEDS: QUEtiapine FUMARATE 200 MG TABLET PO SCH (20:41)
[2018-08-13] MEDS: HALOPERIDOL 10 MG TABLET PO SCH (20:42)
[2018-08-13] MEDS: TraZODone HCL 100 MG TABLET PO SCH (20:42)
[2018-08-13] MEDS: INSULIN GLARGINE,HUM.REC.ANLOG 100 UNITS/ML SQ SCH (20:44)
[2018-08-13 20:50] LABS: GLUCOMETER DEV NAME(LOC) 3EX.; GLUCOSE,POINT OF CARE 116 MG/DL (70-110)
[2018-08-13] MEDS ORDERED: IOVERSOL 350 MG/ML 100 ML VIAL ONE (21:26)
[2018-08-13] MEDS ORDERED: SODIUM CHLORIDE 0.9% 100 ML ONE (21:27)
[2018-08-14 08:00] VITALS: BP 140/86
[2018-08-14] MEDS: SitaGLIPtin PHOSPHATE 50 MG TABLET PO SCH (09:25)
[2018-08-14] MEDS: BENZTROPINE MESYLATE 1 MG TABLET PO SCH ×2 (09:25→16:20)
[2018-08-14] MEDS: BuPROPion HCL XL 150 MG ER TABLET PO SCH (09:25)
[2018-08-14] MEDS: PANTOPRAZOLE SODIUM 40 MG DR TABLET PO SCH (09:25)
[2018-08-14] MEDS: CARVEDILOL 3.125 MG TABLET PO SCH ×2 (09:26→16:20)
[2018-08-14] MEDS: FLUTICASONE/VILANTEROL 200-25 MCG/INH INHALER [14] IH SCH (09:27)
[2018-08-14] MEDS: SERTRALINE HCL 50 MG TABLET PO SCH (09:27)
[2018-08-14] MEDS: NICOTINE 21 MG/24 HOUR PATCH TD SCH (09:29)
[2018-08-14 11:34] LABS: GLUCOMETER DEV NAME(LOC) 3EX.; GLUCOSE,POINT OF CARE 127 MG/DL (70-110)
[2018-08-14 11:35] LABS: GLUCOMETER DEV NAME(LOC) 3EX.; GLUCOSE,POINT OF CARE 123 MG/DL (70-110)
[2018-08-14] MEDS: HALOPERIDOL 5 MG TABLET PO PRN (16:20)
[2018-08-14] MEDS: LORazepam 2 MG TABLET PO PRN (16:20)
[2018-08-14 16:29] LABS: GLUCOMETER DEV NAME(LOC) 3EX.; GLUCOSE,POINT OF CARE 167 MG/DL (70-110)
[2018-08-14 17:00] VITALS: BP 142/76
[2018-08-14] MEDS: INSULIN LISPRO 100 UNITS/ML SQ PRN ×2 (17:25→21:08)
[2018-08-14] MEDS ORDERED: BISACODYL 5 MG EC TABLET PO PRN (19:00)
[2018-08-14] MEDS: QUEtiapine FUMARATE 200 MG TABLET PO SCH (20:47)
[2018-08-14] MEDS: HALOPERIDOL 10 MG TABLET PO SCH (20:47)
[2018-08-14] MEDS: TraZODone HCL 100 MG TABLET PO SCH (20:47)
[2018-08-14 21:04] LABS: GLUCOMETER DEV NAME(LOC) 3EX.; GLUCOSE,POINT OF CARE 158 MG/DL (70-110)
[2018-08-14] MEDS: INSULIN GLARGINE,HUM.REC.ANLOG 100 UNITS/ML SQ SCH (21:08)
[2018-08-15 06:20] LABS: GLUCOMETER DEV NAME(LOC) 3EX.; GLUCOSE,POINT OF CARE 157 MG/DL (70-110)
[2018-08-15] MEDS: INSULIN LISPRO 100 UNITS/ML SQ PRN ×3 (07:03→20:41)
[2018-08-15] MEDS: BuPROPion HCL XL 150 MG ER TABLET PO SCH (07:52)
[2018-08-15] MEDS: CARVEDILOL 3.125 MG TABLET PO SCH ×2 (07:52→16:03)
[2018-08-15] MEDS: FLUTICASONE/VILANTEROL 200-25 MCG/INH INHALER [14] IH SCH (07:52)
[2018-08-15] MEDS: SitaGLIPtin PHOSPHATE 50 MG TABLET PO SCH (07:52)
[2018-08-15] MEDS: PANTOPRAZOLE SODIUM 40 MG DR TABLET PO SCH (07:52)
[2018-08-15] MEDS: SERTRALINE HCL 50 MG TABLET PO SCH (07:52)
[2018-08-15] MEDS: DOCUSATE SODIUM 250 MG CAPSULE PO SCH ×3 (07:52→16:03)
[2018-08-15] MEDS: BENZTROPINE MESYLATE 1 MG TABLET PO SCH ×2 (07:53→16:03)
[2018-08-15] MEDS: NICOTINE 21 MG/24 HOUR PATCH TD SCH (07:55)
[2018-08-15 09:24] VITALS: BP 148/93
[2018-08-15] MEDS: HALOPERIDOL 5 MG TABLET PO PRN (09:52)
[2018-08-15] MEDS: LORazepam 2 MG TABLET PO PRN ×2 (09:52→16:03)
[2018-08-15 11:19] LABS: GLUCOMETER DEV NAME(LOC) 3EX.; GLUCOSE,POINT OF CARE 125 MG/DL (70-110)
[2018-08-15 16:09] LABS: GLUCOMETER DEV NAME(LOC) 3EX.; GLUCOSE,POINT OF CARE 206 MG/DL (70-110)
[2018-08-15 18:43] VITALS: BP 140/82
[2018-08-15] MEDS: TraZODone HCL 100 MG TABLET PO SCH (20:39)
[2018-08-15] MEDS: QUEtiapine FUMARATE 200 MG TABLET PO SCH (20:39)
[2018-08-15] MEDS: HALOPERIDOL 10 MG TABLET PO SCH (20:39)
[2018-08-15] MEDS: INSULIN GLARGINE,HUM.REC.ANLOG 100 UNITS/ML SQ SCH (20:40)
[2018-08-15 21:14] LABS: GLUCOMETER DEV NAME(LOC) 3EX.; GLUCOSE,POINT OF CARE 198 MG/DL (70-110)
[2018-08-16 05:34] LABS: GLUCOMETER DEV NAME(LOC) 3EX.; GLUCOSE,POINT OF CARE 187 MG/DL (70-110)
[2018-08-16] MEDS: MetFORMIN HCL 500 MG TABLET PO SCH ×2 (06:45→16:32)
[2018-08-16] MEDS: INSULIN LISPRO 100 UNITS/ML SQ PRN ×4 (06:57→21:26)
[2018-08-16 08:12] VITALS: BP 135/89
[2018-08-16] MEDS: PANTOPRAZOLE SODIUM 40 MG DR TABLET PO SCH (09:07)
[2018-08-16] MEDS: SitaGLIPtin PHOSPHATE 50 MG TABLET PO SCH (09:07)
[2018-08-16] MEDS: SERTRALINE HCL 50 MG TABLET PO SCH (09:07)
[2018-08-16] MEDS: BENZTROPINE MESYLATE 1 MG TABLET PO SCH ×2 (09:07→16:02)
[2018-08-16] MEDS: FLUTICASONE/VILANTEROL 200-25 MCG/INH INHALER [14] IH SCH (09:07)
[2018-08-16] MEDS: BuPROPion HCL XL 150 MG ER TABLET PO SCH (09:07)
[2018-08-16] MEDS: CARVEDILOL 3.125 MG TABLET PO SCH ×2 (09:07→16:02)
[2018-08-16] MEDS: DOCUSATE SODIUM 250 MG CAPSULE PO SCH ×3 (09:07→16:02)
[2018-08-16] MEDS: NICOTINE 21 MG/24 HOUR PATCH TD SCH (09:09)
[2018-08-16 11:34] LABS: GLUCOMETER DEV NAME(LOC) 3EX.; GLUCOSE,POINT OF CARE 110 MG/DL (70-110)
[2018-08-16] MEDS ORDERED: LACTULOSE 20 GM/30 ML SOLUTION UDCUP PO PRN (13:15)
[2018-08-16] MEDS: LORazepam 2 MG TABLET PO PRN (16:08)
[2018-08-16 16:55] LABS: GLUCOMETER DEV NAME(LOC) 3EX.; GLUCOSE,POINT OF CARE 150 MG/DL (70-110)
[2018-08-16 17:17] VITALS: BP 143/75
[2018-08-16] MEDS: QUEtiapine FUMARATE 200 MG TABLET PO SCH (20:38)
[2018-08-16] MEDS: HALOPERIDOL 10 MG TABLET PO SCH (20:39)
[2018-08-16] MEDS: TraZODone HCL 100 MG TABLET PO SCH (20:39)
[2018-08-16 20:49] LABS: GLUCOMETER DEV NAME(LOC) 3EX.; GLUCOSE,POINT OF CARE 164 MG/DL (70-110)
[2018-08-16] MEDS: INSULIN GLARGINE,HUM.REC.ANLOG 100 UNITS/ML SQ SCH (21:25)
[2018-08-17] MEDS: MetFORMIN HCL 500 MG TABLET PO SCH ×2 (06:49→17:33)
[2018-08-17] MEDS: INSULIN LISPRO 100 UNITS/ML SQ PRN ×4 (06:58→20:56)
[2018-08-17 08:22] VITALS: BP 142/90
[2018-08-17] MEDS: PANTOPRAZOLE SODIUM 40 MG DR TABLET PO SCH (08:52)
[2018-08-17] MEDS: DOCUSATE SODIUM 250 MG CAPSULE PO SCH ×3 (08:52→16:12)
[2018-08-17] MEDS: BENZTROPINE MESYLATE 1 MG TABLET PO SCH ×2 (08:53→16:11)
[2018-08-17] MEDS: BuPROPion HCL XL 150 MG ER TABLET PO SCH (08:53)
[2018-08-17] MEDS: CARVEDILOL 3.125 MG TABLET PO SCH ×2 (08:53→16:11)
[2018-08-17] MEDS: FLUTICASONE/VILANTEROL 200-25 MCG/INH INHALER [14] IH SCH (08:53)
[2018-08-17] MEDS: SERTRALINE HCL 50 MG TABLET PO SCH (08:53)
[2018-08-17] MEDS: NICOTINE 21 MG/24 HOUR PATCH TD SCH (08:54)
[2018-08-17] MEDS: SitaGLIPtin PHOSPHATE 50 MG TABLET PO SCH (08:55)
[2018-08-17 11:29] LABS: GLUCOMETER DEV NAME(LOC) 3EX.; GLUCOSE,POINT OF CARE 115 MG/DL (70-110)
[2018-08-17 16:14] LABS: GLUCOMETER DEV NAME(LOC) 3EX.; GLUCOSE,POINT OF CARE 188 MG/DL (70-110)
[2018-08-17 17:17] VITALS: BP 137/77
[2018-08-17] MEDS: LORazepam 2 MG TABLET PO PRN (17:53)
[2018-08-17] MEDS: QUEtiapine FUMARATE 200 MG TABLET PO SCH (20:22)
[2018-08-17] MEDS: TraZODone HCL 100 MG TABLET PO SCH (20:22)
[2018-08-17] MEDS: HALOPERIDOL 10 MG TABLET PO SCH (20:22)
[2018-08-17 20:29] LABS: GLUCOMETER DEV NAME(LOC) 3EX.; GLUCOSE,POINT OF CARE 173 MG/DL (70-110)
[2018-08-17] MEDS: INSULIN GLARGINE,HUM.REC.ANLOG 100 UNITS/ML SQ SCH (20:55)
[2018-08-18 05:54] LABS: GLUCOMETER DEV NAME(LOC) 3EX.; GLUCOSE,POINT OF CARE 118 MG/DL (70-110)
[2018-08-18] MEDS: MetFORMIN HCL 500 MG TABLET PO SCH ×2 (06:36→16:39)
[2018-08-18] MEDS: SERTRALINE HCL 50 MG TABLET PO SCH (08:57)
[2018-08-18] MEDS: PANTOPRAZOLE SODIUM 40 MG DR TABLET PO SCH (08:57)
[2018-08-18] MEDS: CARVEDILOL 3.125 MG TABLET PO SCH ×2 (08:57→16:38)
[2018-08-18] MEDS: BuPROPion HCL XL 150 MG ER TABLET PO SCH (08:57)
[2018-08-18] MEDS: BENZTROPINE MESYLATE 1 MG TABLET PO SCH ×2 (08:58→16:39)
[2018-08-18] MEDS: FLUTICASONE/VILANTEROL 200-25 MCG/INH INHALER [14] IH SCH (08:58)
[2018-08-18] MEDS: DOCUSATE SODIUM 250 MG CAPSULE PO SCH ×3 (09:01→17:00)
[2018-08-18] MEDS: SitaGLIPtin PHOSPHATE 50 MG TABLET PO SCH (09:01)
[2018-08-18] MEDS: NICOTINE 21 MG/24 HOUR PATCH TD SCH (09:05)
[2018-08-18 10:14] VITALS: BP 137/73
[2018-08-18] MEDS ORDERED: DOCU250C91 PO (10:16)
[2018-08-18] MEDS ORDERED: SERT50TA12 PO (10:20)
[2018-08-18 11:14] LABS: GLUCOMETER DEV NAME(LOC) 3EX.; GLUCOSE,POINT OF CARE 138 MG/DL (70-110)
[2018-08-18] MEDS: INSULIN LISPRO 100 UNITS/ML SQ PRN ×2 (12:07→21:15)
[2018-08-18] MEDS: LORazepam 2 MG TABLET PO PRN ×2 (12:44→20:56)
[2018-08-18 16:45] LABS: GLUCOMETER DEV NAME(LOC) 3EX.; GLUCOSE,POINT OF CARE 111 MG/DL (70-110)
[2018-08-18 17:00] VITALS: BP 140/75
[2018-08-18] MEDS: HALOPERIDOL 5 MG TABLET PO PRN (20:16)
[2018-08-18] MEDS: HALOPERIDOL 10 MG TABLET PO SCH (20:17)
[2018-08-18] MEDS: QUEtiapine FUMARATE 200 MG TABLET PO SCH (20:17)
[2018-08-18] MEDS: TraZODone HCL 100 MG TABLET PO SCH (20:18)
[2018-08-18 20:19] LABS: GLUCOMETER DEV NAME(LOC) 3EX.; GLUCOSE,POINT OF CARE 190 MG/DL (70-110)
[2018-08-18] MEDS: INSULIN GLARGINE,HUM.REC.ANLOG 100 UNITS/ML SQ SCH (21:15)
[2018-08-19 06:10] LABS: GLUCOMETER DEV NAME(LOC) 3EX.; GLUCOSE,POINT OF CARE 145 MG/DL (70-110)
[2018-08-19] MEDS: INSULIN LISPRO 100 UNITS/ML SQ PRN ×2 (07:00→20:53)
[2018-08-19] MEDS: MetFORMIN HCL 500 MG TABLET PO SCH ×2 (07:01→16:20)
[2018-08-19] MEDS: DOCUSATE SODIUM 250 MG CAPSULE PO SCH ×3 (09:00→16:21)
[2018-08-19 09:01] VITALS: BP 117/73
[2018-08-19] MEDS: FLUTICASONE/VILANTEROL 200-25 MCG/INH INHALER [14] IH SCH (09:18)
[2018-08-19] MEDS: BuPROPion HCL XL 150 MG ER TABLET PO SCH (09:20)
[2018-08-19] MEDS: CARVEDILOL 3.125 MG TABLET PO SCH ×2 (09:20→16:20)
[2018-08-19] MEDS: BENZTROPINE MESYLATE 1 MG TABLET PO SCH ×2 (09:20→16:20)
[2018-08-19] MEDS: PANTOPRAZOLE SODIUM 40 MG DR TABLET PO SCH (09:20)
[2018-08-19] MEDS: NICOTINE 21 MG/24 HOUR PATCH TD SCH (09:20)
[2018-08-19] MEDS: SERTRALINE HCL 50 MG TABLET PO SCH (09:20)
[2018-08-19] MEDS: SitaGLIPtin PHOSPHATE 50 MG TABLET PO SCH (09:22)
[2018-08-19 11:20] LABS: GLUCOMETER DEV NAME(LOC) 3EX.; GLUCOSE,POINT OF CARE 126 MG/DL (70-110)
[2018-08-19 17:45] LABS: GLUCOMETER DEV NAME(LOC) 3EX.; GLUCOSE,POINT OF CARE 130 MG/DL (70-110)
[2018-08-19 18:20] VITALS: BP 139/67
[2018-08-19] MEDS: QUEtiapine FUMARATE 200 MG TABLET PO SCH (20:17)
[2018-08-19] MEDS: TraZODone HCL 100 MG TABLET PO SCH (20:17)
[2018-08-19] MEDS: HALOPERIDOL 10 MG TABLET PO SCH (20:18)
[2018-08-19 20:29] LABS: GLUCOMETER DEV NAME(LOC) 3EX.; GLUCOSE,POINT OF CARE 163 MG/DL (70-110)
[2018-08-19] MEDS: INSULIN GLARGINE,HUM.REC.ANLOG 100 UNITS/ML SQ SCH (21:01)
[2018-08-20 06:05] LABS: GLUCOMETER DEV NAME(LOC) 3EX.; GLUCOSE,POINT OF CARE 181 MG/DL (70-110)
[2018-08-20] MEDS: MetFORMIN HCL 500 MG TABLET PO SCH (06:59)
[2018-08-20] MEDS: INSULIN LISPRO 100 UNITS/ML SQ PRN (07:15)
[2018-08-20] MEDS ORDERED: BUPR-93 PO (07:51)
[2018-08-20] MEDS: BENZTROPINE MESYLATE 1 MG TABLET PO SCH (08:48)
[2018-08-20] MEDS: NICOTINE 21 MG/24 HOUR PATCH TD SCH (08:48)
[2018-08-20] MEDS: SERTRALINE HCL 50 MG TABLET PO SCH (08:48)
[2018-08-20] MEDS: DOCUSATE SODIUM 250 MG CAPSULE PO SCH (08:49)
[2018-08-20] MEDS: SitaGLIPtin PHOSPHATE 50 MG TABLET PO SCH (08:49)
[2018-08-20] MEDS: PANTOPRAZOLE SODIUM 40 MG DR TABLET PO SCH (08:49)
[2018-08-20] MEDS: FLUTICASONE/VILANTEROL 200-25 MCG/INH INHALER [14] IH SCH (08:49)
[2018-08-20] MEDS: CARVEDILOL 3.125 MG TABLET PO SCH (08:49)
[2018-08-20] MEDS: BuPROPion HCL XL 150 MG ER TABLET PO SCH (08:49)
[2018-08-20 09:26] VITALS: BP 129/62
== END 2018-08-20 11:33 | disposition home or self-care (01) | DRG 885 ==
LOC: EMS 09:09 → 3EI 12:09
PROVIDERS: ADMIT Psychiatry & Neurology Psychiatry; ATTEND Psychiatry & Neurology Psychiatry
PROC: 3E0234Z Introduction of Serum, Toxoid and Vaccine into Muscle, Percutaneous Approach (ICD-10-PCS; principal; 2018-08-10)
DX: F25.9 Schizoaffective disorder, unspecified (principal); E87.1 Hypo-osmolality and hyponatremia; R45.851 Suicidal ideations; Z68.41 Body mass index [BMI] 40.0-44.9, adult; E11.65 Type 2 diabetes mellitus with hyperglycemia; E78.00 Pure hypercholesterolemia, unspecified; F17.210 Nicotine dependence, cigarettes, uncomplicated; F41.9 Anxiety disorder, unspecified; G47.33 Obstructive sleep apnea (adult) (pediatric); I10 Essential (primary) hypertension; J44.9 Chronic obstructive pulmonary disease, unspecified; K21.9 Gastro-esophageal reflux disease without esophagitis; K59.00 Constipation, unspecified; Z79.4 Long term (current) use of insulin; Z79.899 Other long term (current) drug therapy; Z91.5 Personal history of self-harm; E66.9 Obesity, unspecified; Z23 Encounter for immunization
CPT/HCPCS: 70491; 84436; 84439; 84443; 87081; 94660; 96372; G0480; J1630; J1815; J2060; J7050

== ENCOUNTER 2020-04-18 16:32 | Inpatient (IN) | payer MEDICARE, MEDICAID ==
[~2020-04-18] VITALS: Ht 185.4 cm; Wt 162.4 kg
[~2020-04-18 16:32] MED LIST changes: +BUPR-93 PO; -BUPR150T3 PO; -CLON.5 PO; +DOCU-350 PO; +PANT-31 PO; -PANT40TA25 PO; -ROSU10 PO; +SERT50TA12 PO
[2020-04-18] MEDS ORDERED: HYDR-1475 PO (17:39)
[2020-04-18 17:41] VITALS: BP 111/70
[2020-04-18] MEDS ORDERED: LORazepam 2 MG TABLET PO PRN (18:00)
[2020-04-18] MEDS ORDERED: ZOLPIDEM TARTRATE 10 MG TABLET PO PRN (18:00)
[2020-04-18] MEDS ORDERED: HALOPERIDOL 5 MG TABLET PO PRN (18:00)
[2020-04-18] MEDS ORDERED: DOCUSATE SODIUM 250 MG CAPSULE PO PRN (19:45)
[2020-04-18 19:47] LABS: GLUCOMETER DEV NAME(LOC) BV2X.; GLUCOSE,POINT OF CARE 203 MG/DL (70-110)
[2020-04-18] MEDS ORDERED: GLUCAGON,HUMAN RECOMBINANT 1 MG VIAL IM PRN (20:00)
[2020-04-18] MEDS ORDERED: INSULIN LISPRO 100 UNITS/ML SQ PRN (20:00)
[2020-04-18] MEDS ORDERED: INSULIN GLARGINE,HUM.REC.ANLOG 100 UNITS/ML SQ SCH (21:00)
[2020-04-19 00:30] VITALS: BP 119/90
[2020-04-19 00:50] VITALS: BP 119/90
[2020-04-19 01:00] VITALS: BP 139/85
[2020-04-19 01:30] VITALS: BP 112/86
[2020-04-19 01:40] VITALS: BP 128/68
[2020-04-19] MEDS ORDERED: MetFORMIN HCL 500 MG TABLET PO SCH (07:00)
[2020-04-19] MEDS ORDERED: PANTOPRAZOLE SODIUM 40 MG DR TABLET PO SCH (09:00)
[2020-04-19] MEDS ORDERED: HYDROCHLOROTHIAZIDE 25 MG TABLET PO SCH (09:00)
[2020-04-19] MEDS ORDERED: SitaGLIPtin PHOSPHATE 50 MG TABLET PO SCH (09:00)
[2020-04-19] MEDS ORDERED: HYDROCORTISONE 1% 30 GM CREAM TP SCH (09:00)
[2020-04-19] MEDS ORDERED: FLUTICASONE/VILANTEROL 200-25 MCG/INH INHALER [14] IH SCH (09:00)
[2020-04-19] MEDS ORDERED: CARVEDILOL 3.125 MG TABLET PO SCH (09:00)
== END 2020-04-19 05:00 | disposition home or self-care (01) | DRG 885 ==
LOC: B2X 17:55
PROVIDERS: ADMIT Psychiatry & Neurology Psychiatry; ATTEND Psychiatry & Neurology Psychiatry
DX: F25.1 Schizoaffective disorder, depressive type (principal); Z68.42 Body mass index [BMI] 45.0-49.9, adult; D64.9 Anemia, unspecified; I10 Essential (primary) hypertension; E11.9 Type 2 diabetes mellitus without complications; E66.9 Obesity, unspecified; K21.9 Gastro-esophageal reflux disease without esophagitis; I25.10 Atherosclerotic heart disease of native coronary artery without angina pectoris; E78.00 Pure hypercholesterolemia, unspecified; G47.30 Sleep apnea, unspecified
CPT/HCPCS: 82728; 83615; 85379; 86140; 87426; J1815; 36415-L1; 36415-TC; 71045-TC; U0003-CS

== ENCOUNTER 2020-04-19 02:07 | Emergency (ER) | payer MEDICARE, OTHER ==
[~2020-04-19] VITALS: Ht 185.4 cm; Wt 159.1 kg
[~2020-04-19 02:07] MED LIST changes: -BUPR-93 PO; +HYDR-1475 PO
[2020-04-19 02:48] LABS: GLUCOSE,POINT OF CARE 229 MG/DL (70-110)
[2020-04-19 02:57] LABS: BASOPHILS % (AUTO) 0.9 % (0.0-2.0); EOSINOPHILS % (AUTO) 2.2 % (1.0-6.0); HEMATOCRIT 38.5 % (41-53); HEMOGLOBIN 13.1 g/dL (13.5-17.5); LYMPHOCYTES # (AUTO) 2.3 K/uL (1.0-4.8); LYMPHOCYTES % (AUTO) 25.3 % (22.0-44.0); MEAN CORPUSCULAR HEMOGLOBIN 29.5 pg (26.0-34.0); MEAN CORPUSCULAR HGB CONC 34.1 G/dL (31.0-37.0); MEAN CORPUSCULAR VOLUME 86 fL (80-100); MONOCYTES # (AUTO) 0.6 K/uL (0.1-1.0); MONOCYTES % (AUTO) 6.3 % (2.0-9.0); NEUTROPHILS # (AUTO) 6.1 K/uL (1.8-7.7); NEUTROPHILS % (AUTO) 65.3 % (40.0-70.0); PLATELET COUNT (AUTO) 259 K/uL (150-450); RED BLOOD CELL COUNT(AUTO) 4.46 MIL/uL (4.50-5.90); RED CELL DISTRIBUTION WIDTH 13.6 % (11.5-14.5)
[2020-04-19 03:20] LABS: ANION GAP 7 mmol/L (8-16); CALCIUM, TOTAL 9.2 mg/dL (8.8-10.5); CARBON DIOXIDE 29 mmol/L (22-29); CHLORIDE 90 mmol/L (98-107); CREATININE 0.79 mg/dL (0.60-1.30); GLOMERULAR FILTR. RATE CALC > 60 mL/min (>60); GLUCOSE,RANDOM 220 mg/dL (70-110); POTASSIUM 3.9 mmol/L (3.5-5.1); SODIUM SERUM 126 mmol/L (136-145); UREA NITROGEN, BLOOD 10 mg/dL (7-18)
[2020-04-19 03:25] LABS: D-DIMER 0.54 mg/L FEU (0.00-0.50); INR 1.1 (0.9-1.1); PROTHROMBIN TIME 11.5 SEC (9.4-11.6)
[2020-04-19 03:36] LABS: B-TYPE NATRIURETIC PEPTIDE 21 pg/mL (0-100)
[2020-04-19 03:45] LABS: ALANINE AMINOTRANSFERASE 35 U/L (12-78); ALBUMIN 3.8 g/dL (3.4-5.0); ALKALINE PHOSPHATASE 62 U/L (46-116); ASPARTATE AMINOTRANSFERASE 15 U/L (15-37); BILIRUBIN,TOTAL 0.3 mg/dL (0.1-1.0); C-REACTIVE PROTEIN QUANT 0.18 mg/dL (0.00-0.30); CREATINE KINASE, TOTAL ONLY 371 U/L (39-308); FERRITIN 45 ng/mL (26-388); LACTATE DEHYDROGENASE 159 U/L (85-227); TOTAL PROTEIN, SERUM 7.3 g/dL (6.4-8.2)
[2020-04-19] MEDS ORDERED: DOXYCYCLINE HYCLATE 100 MG TABLET PO ONE (05:00)
[2020-04-19 05:38] VITALS: BP 136/82
== END 2020-04-19 05:15 | disposition home or self-care (01) ==
LOC: EMS 02:07
DX: J18.9 Pneumonia, unspecified organism (principal); R06.02 Shortness of breath; R45.851 Suicidal ideations; J44.9 Chronic obstructive pulmonary disease, unspecified; F32.9 Major depressive disorder, single episode, unspecified; E11.9 Type 2 diabetes mellitus without complications; K21.9 Gastro-esophageal reflux disease without esophagitis; I11.9 Hypertensive heart disease without heart failure; F20.9 Schizophrenia, unspecified; F17.210 Nicotine dependence, cigarettes, uncomplicated; Z20.828 Contact with and (suspected) exposure to other viral communicable diseases; Z79.84 Long term (current) use of oral hypoglycemic drugs; Z79.4 Long term (current) use of insulin
CPT/HCPCS: 36415; 71045; 80053; 82550; 82728; 82962; 83615; 83880; 84484; 85025; 85379; 85610; 85730; 86140; 87426; 99284; U0003